=== PATIENT | female | born 1955 | race Caucasian/White ===

== ENCOUNTER → 2017-05-23 | Outpatient (CLI) | payer BC ==
--- NOTE | 2017-05-25 08:21 | MM ---
Reason for exam: screening (asymptomatic). Last mammogram was performed 1 year and 1 month ago. History: Patient is postmenopausal and is nulliparous. Took hormonal contraceptives for 20 years beginning at age 19. Took estrogen for 1 year beginning at age 44. Took progesterone for 1 year beginning at age 44. Physical Findings: A clinical breast exam by your physician is recommended on an annual basis and results should be correlated with mammographic findings. MG Screening Mammo w CAD Bilateral CC and MLO view(s) were taken. Prior study comparison: April 22, 2016, bilateral MG screening mammo w CAD. February 19, 2015, bilateral MG screening mammo w CAD. There are scattered fibroglandular densities. There is no discrete abnormality. No significant changes when compared with prior studies. ASSESSMENT: Negative, BI-RAD 1 RECOMMENDATION: Routine screening mammogram of both breasts in 1 year.
== END ==
LOC: RADMAMWWP 15:17
PROVIDERS: ATTEND Family Medicine
DX: Z12.31 Encounter for screening mammogram for malignant neoplasm of breast (principal)

== ENCOUNTER → 2018-07-21 | Outpatient (CLI) | payer BC ==
--- NOTE | 2018-07-29 10:21 | MM ---
Reason for exam: screening (asymptomatic). Last mammogram was performed 1 year and 2 months ago. History: Patient is postmenopausal and is nulliparous. Took hormonal contraceptives for 20 years beginning at age 19. Took estrogen for 1 year beginning at age 44. Took progesterone for 1 year beginning at age 44. MG Screening Mammo w CAD Bilateral CC and MLO view(s) were taken. Prior study comparison: May 23, 2017, bilateral MG screening mammo w CAD. April 22, 2016, bilateral MG screening mammo w CAD. There are scattered fibroglandular densities. Chronic nodularity left breast laterally and posteriorly on CC view unchanged from 2016. No significant changes when compared with prior studies. ASSESSMENT: Benign, BI-RAD 2 RECOMMENDATION: Routine screening mammogram of both breasts in 1 year.
== END ==
LOC: RADMAMWWP 11:28
PROVIDERS: ATTEND Family Medicine
DX: Z12.31 Encounter for screening mammogram for malignant neoplasm of breast (principal)
CPT/HCPCS: 77067

== ENCOUNTER → 2019-01-29 | Outpatient (CLI) | payer BC ==
--- NOTE | 2019-01-29 16:51 | XR ---
EXAMINATION TYPE: XR chest 2V DATE OF EXAM: 01/29/2019 COMPARISON: Prior chest x-ray 11/04/2013 HISTORY: Nicotine dependence TECHNIQUE: Frontal and lateral views of the chest are obtained. FINDINGS: There is no focal air space opacity, pleural effusion, or pneumothorax seen. The cardiac silhouette size is stable. The osseous structures are intact. Question nodular density between the posterior left sixth and seventh ribs measuring approximately 5 mm. Prominent lung volumes may be ind icative of underlying COPD. IMPRESSION: Question left upper lobe lung nodule, consider chest CT or short interval follow-up.
== END | disposition home or self-care (01) ==
LOC: RADXRMAIN 15:00
PROVIDERS: ATTEND Physician Assistant
DX: F17.200 Nicotine dependence, unspecified, uncomplicated (principal)
CPT/HCPCS: 71046

== ENCOUNTER → 2019-02-11 | Outpatient (CLI) | payer BC ==
--- NOTE | 2019-02-12 09:59 | CT ---
EXAMINATION TYPE: CT chest w con DATE OF EXAM: 02/11/2019 COMPARISON: Chest x-ray 01/29/2019 HISTORY: solitary pulmonary nodule CT DLP: 301.8 mGycm Automated exposure control for dose reduction was used. CONTRAST: CT scan of the chest is performed with IV Contrast, patient injected with 100 mL of Isovue 300. FINDINGS: LUNGS: The lungs are grossly clear, there is no concerning parenchymal mass or nodule identified. Jeronimo e scattered areas of centrilobular emphysematous change, thickened linear parenchymal bands, and susp ected bronchiectasis. Some mild bronchial wall thickening present centrally. Probable scarring at the lingula, there is some minimal nodularity present and there is some scarring likely at the posterior left lung base. There is no pleural effusion or pneumothorax seen. The tracheobronchial tree is pa tent. MEDIASTINUM: There are no greater than 1 cm hilar or mediastinal lymph nodes. No pericardial effusi on is seen. Mild coronary artery calcification AORTA: No additional significant abnormality is seen. OTHER: No additional significant abnormality is seen. IMPRESSION: There is some mild emphysema, interstitial lung disease, bronchiectasis. No evident lung mass.
== END | disposition home or self-care (01) ==
LOC: RADCTMAIN 17:27
PROVIDERS: ATTEND Family Medicine
DX: J43.2 Centrilobular emphysema (principal); J84.9 Interstitial pulmonary disease, unspecified; J47.9 Bronchiectasis, uncomplicated
CPT/HCPCS: 71260; Q9967

== ENCOUNTER 2019-03-13 08:38 | Day surgery (SDC) | payer BC ==
[2019-03-08 13:58] VITALS: BMI 25.9
--- NOTE | 2019-03-13 07:33 | P.GSHP ---
History of Present Illness H&P Date: 03/13/19 CHIEF COMPLAINT: Colon screen HISTORY OF PRESENT ILLNESS: The patient is a 63-year-old female who presents for colon screen. Lower endoscopy was offered for further evaluation and management. PAST MEDICAL HISTORY: Please see list. PAST SURGICAL HISTORY: Please see list. MEDICATIONS: Please see list. ALLERGIES: Please see list. SOCIAL HISTORY: No illicit drug use FAMILY HISTORY: No reports of Crohn disease or ulcerative colitis. REVIEW OF ORGAN SYSTEMS: CONSTITUTIONAL: No reports of fevers or chills. PHYSICAL EXAM: VITAL SIGNS: Stable GENERAL: Well-developed pleasant in no acute distress. HEENT: No scleral icterus. Extraocular movements grossly intact. Moist buccal mucosa. NECK: Supple without lymphadenopathy. CHEST: Unlabored respirations. Equal bilateral excursions. CARDIOVASCULAR: Regular rate and rhythm. Distal 2+ pulses. ABDOMEN: Soft, nontender, nondistended. MUSCULOSKELETAL: No clubbing, cyanosis, or edema. ASSESSMENT: 1. Colon screen. PLAN: 1. Recommend proceeding with a lower endoscopy Past Medical History Past Medical History: COPD Additional Past Medical History / Comment(s): states positive cologaurd, no rx for COPD History of Any Multi-Drug Resistant Organisms: None Reported Past Surgical History: Appendectomy, Hysterectomy, Tonsillectomy Past Anesthesia/Blood Transfusion Reactions: No Reported Reaction Smoking Status: Current every day smoker - Past Family History Mother Family Medical History: Deep Vein Thrombosis (DVT) Medications and Allergies Home Medications Medication Instructions Recorded Confirmed Type ALPRAZolam [Xanax] 1 mg PO BID 03/08/19 03/08/19 History Citalopram Hydrobromide [CeleXA] 40 mg PO HS 03/08/19 03/08/19 History Multivitamins, Thera [Multivitamin 1 tab PO DAILY 03/08/19 03/08/19 History (formulary)] Allergies Allergy/AdvReac Type Severity Reaction Status Date / Time No Known Allergies Allergy Verified 03/08/19 12:58
[~2019-03-13 08:38] MED LIST: LACTATED RINGERS 1,000 ML IV SCH; LIDOCAINE 1% 20 ML VIAL (10MG/ML) FOR IV START INTRADERMA PRN; MIDAZOLAM 2 MG/2 ML VIAL IV PRN
[2019-03-13 08:59] VITALS: RESP 16; TEMP 98.8
[2019-03-13] MEDS ORDERED: PROPOFOL 10 MG/ML 20 ML VIAL IV ONE (09:28)
[2019-03-13] MEDS ORDERED: IV FLUID CONTINUATION 1,000 ML IV ONE (10:23)
--- NOTE | 2019-03-13 10:30 | P.PCN ---
Date of Procedure: 03/13/19 Description of Procedure: PREOPERATIVE DIAGNOSIS: Colonoscopy screening, first POSTOPERATIVE DIAGNOSIS: Colonoscopy screening, first Multiple tubular adenomas throughout the colon External hemorrhoids, grade 2 Severe sigmoid diverticulosis Partial large bowel obstruction sigmoid stricture Hepatic flexure tumor, 5 cm OPERATION: Colonoscopy to the ileocecal valve and appendiceal orifice Colonoscopy with multiple hot snare polypectomies Colonoscopy with Rothnet for retrieval of large intramucosal tumor Colonoscopy with resection of large 5 cm intramucosal tumor, hepatic flexure SURGEON: Molly Flores MD. ANESTHESIA: MAC. INDICATIONS: The patient is a 63-year-old female who presents for colonoscopy screening, initial screening. Benefits and risks were described and informed consent was obtained. DESCRIPTION OF PROCEDURE: The patient had undergone Suprep. She had been brought into the operating room and laid in the left lateral decubitus position. After adequate intravenous sedation, the rectum was examined with 2% lidocaine jelly. External hemorrhoids were encountered. The rectal tone was within normal limits. No lesions were palpated in the rectal vault. Initially an adult size Olympus colonoscope was used however at the sigmoid colon, sigmoid stricture was identified. A pe diatric colonoscope was used for the rest of the case. An Olympus colonoscope was advanced until the ileocecal valve and appendiceal orifice were clearly viewed. The prep was good with visualization of the mucosal folds. Abdominal wall pressure was used to advance the scope through a extremely tortuous sigmoid colon with moderate to severe sigmoid diverticulosis including colonic stricture. Multiple colonic polyps were found snare polypectomy. An over 5 cm pedunculated intramucosal tumor from the hepatic flexure was snared at its base for complete resection. A combination of cold forceps including Rothnet was used to remove the large polyp through the colon. Severe colon stricture was confirmed at the sigmoid colon where careful maneuvering was used to remove the over 5 cm tumor. Reinsertion of the colon was required however prohibited secondary to moderate edema of the colonic mucosa. Additional adenomas were confirmed along the sigmoid colon however unable to retrieve secondary to moderate edema following retrieval of large tumor. No evidence of focal colitis was found. Retroflexion of the scope demonstrated grade 2 internal hemorrhoids without active bleeding or inflammation. The colon was desufflated. The patient had tolerated the procedure well. Withdrawal time was over 6 minutes. FINDINGS: Aronchick preparation quality scale 1 (1-5) Internal hemorrhoids, grade 2 External hemorrhoids, grade 3 No arteriovenous malformations Severe colon stricture along sigmoid colon requiring pediatric colonoscope Severe sigmoid diverticulosis with redundancy Removal of 3 polyps: - Snare polypectomy at ileocecal valve, 5 mm tubulovillous adenoma polyp. - Snare polypectomy at ascending colon 2, 8 mm and 6-mm flat villous adenoma polyp. Resection of intramucosal tumor from hepatic flexure: - Over 5 cm intramucosal mass/tumor resected using snare polypectom - Combination of retrieval using cold forceps biopsies including Rothnet RECOMMENDATIONS: Given severity of tubular adenomas and resection of large intramucosal tumor over 5-cm, repeat colonoscopy in 6 months, August 2019 Plan - Discharge Summary Discharge Rx Participant: No New Discharge Prescriptions: No Action Multivitamins, Thera [Multivitamin (formulary)] 1 tab PO DAILY Citalopram Hydrobromide [CeleXA] 40 mg PO HS ALPRAZolam [Xanax] 1 mg PO BID Discharge Medication List ALPRAZolam [Xanax] 1 mg PO BID 03/08/19 [History] Citalopram Hydrobromide [CeleXA] 40 mg PO HS 03/08/19 [History] Multivitamins, Thera [Multivitamin (formulary)] 1 tab PO DAILY 03/08/19 [History] Follow up Appointment(s)/Referral(s): Molly Flores MD [STAFF PHYSICIAN] - 03/26/19 Patient Instructions/Handouts: Colorectal Polyps (DC), Diverticulosis Diet (GEN), Diverticulosis (DC) Activity/Diet/Wound Care/Special Instructions: Repeat colonoscopy in 6 months, September 2019 for large 4-inch mass removed from colon. Discharge Disposition: HOME SELF-CARE
[2019-03-13 10:40] VITALS: BP 113/71; PULSE 89
== END 2019-03-13 11:41 | disposition home or self-care (01) ==
LOC: ORWHC2ENDO 08:38
PROVIDERS: ATTEND Surgery Plastic and Reconstructive Surgery
DX: Z12.11 Encounter for screening for malignant neoplasm of colon (principal); K57.30 Diverticulosis of large intestine without perforation or abscess without bleeding; K56.699 Other intestinal obstruction unspecified as to partial versus complete obstruction; K64.1 Second degree hemorrhoids; D12.0 Benign neoplasm of cecum; D12.2 Benign neoplasm of ascending colon; D12.3 Benign neoplasm of transverse colon; Z79.899 Other long term (current) drug therapy; J44.9 Chronic obstructive pulmonary disease, unspecified; F17.200 Nicotine dependence, unspecified, uncomplicated; F39 Unspecified mood [affective] disorder
CPT/HCPCS: 88305; 45385; J2704

== ENCOUNTER → 2019-07-26 | Outpatient (CLI) | payer MEDICARE, BC ==
--- NOTE | 2019-07-29 13:16 | MM ---
Reason for exam: screening (asymptomatic). Last mammogram was performed 1 year ago. History: Patient is postmenopausal and is nulliparous. Took hormonal contraceptives for 20 years beginning at age 19. Took estrogen for 1 year beginning at age 44. Took progesterone for 1 year beginning at age 44. Physical Findings: A clinical breast exam by your physician is recommended on an annual basis and results should be correlated with mammographic findings. MG 3D Screening Mammo W/Cad Bilateral CC and MLO view(s) were taken. Prior study comparison: July 21, 2018, bilateral MG screening mammo w CAD. May 23, 2017, bilateral MG screening mammo w CAD. There are scattered fibroglandular densities. No suspicious abnormality. No significant changes when compared with prior studies. ASSESSMENT: Negative, BI-RAD 1 RECOMMENDATION: Routine screening mammogram of both breasts in 1 year.
== END | disposition home or self-care (01) ==
LOC: RADMAMWWP 16:16
PROVIDERS: ATTEND Family Medicine
DX: Z12.31 Encounter for screening mammogram for malignant neoplasm of breast (principal)
CPT/HCPCS: 77063; 77067

== ENCOUNTER 2019-09-04 09:37 | Day surgery (SDC) | payer MEDICARE, BC ==
[2019-09-04 10:46] VITALS: TEMP 97
[2019-09-04] MEDS ORDERED: LACTATED RINGERS 1,000 ML IV ONE (10:58)
[2019-09-04] MEDS ORDERED: LIDOCAINE 1% (10MG/ML) FOR IV START INTRADERMA ONE (10:58)
[2019-09-04] MEDS ORDERED: PROPOFOL 10 MG/ML 20 ML VIAL IV ONE (11:14)
--- NOTE | 2019-09-04 11:17 | P.GSHP ---
History of Present Illness H&P Date: 09/04/19 CHIEF COMPLAINT: Colon screen HISTORY OF PRESENT ILLNESS: The patient is a 64-year-old female who presents for colon screen. Lower endoscopy was offered for further evaluation and management. PAST MEDICAL HISTORY: Please see list. PAST SURGICAL HISTORY: Please see list. MEDICATIONS: Please see list. ALLERGIES: Please see list. SOCIAL HISTORY: No illicit drug use FAMILY HISTORY: No reports of Crohn disease or ulcerative colitis. REVIEW OF ORGAN SYSTEMS: CONSTITUTIONAL: No reports of fevers or chills. PHYSICAL EXAM: VITAL SIGNS: Stable GENERAL: Well-developed pleasant in no acute distress. HEENT: No scleral icterus. Extraocular movements grossly intact. Moist buccal mucosa. NECK: Supple without lymphadenopathy. CHEST: Unlabored respirations. Equal bilateral excursions. CARDIOVASCULAR: Regular rate and rhythm. Distal 2+ pulses. ABDOMEN: Soft, nontender, nondistended. MUSCULOSKELETAL: No clubbing, cyanosis, or edema. ASSESSMENT: 1. Colon screen. PLAN: 1. Recommend proceeding with a lower endoscopy Past Medical History Past Medical History: COPD Additional Past Medical History / Comment(s): states positive cologaurd, no rx for COPD History of Any Multi-Drug Resistant Organisms: None Reported Past Surgical History: Appendectomy, Hysterectomy, Tonsillectomy Past Anesthesia/Blood Transfusion Reactions: No Reported Reaction Additional Past Anesthesia/Blood Transfusion Reaction / Comment(s): PT REPORTS NEVER RECEIVED Past Psychological History: Anxiety Smoking Status: Current every day smoker Past Alcohol Use History: Occasional Additional Past Alcohol Use History / Comment(s): was a 1ppd smoker, trying to quit down to 10 cigarettes a day from age 17 Past Drug Use History: None Reported - Past Family History Mother Family Medical History: Deep Vein Thrombosis (DVT) Additional Family Medical History / Comment(s): PT UNSURE OF MEDICAL HX FROM ANY OTHER FAMILY Medications and Allergies Home Medications Medication Instructions Recorded Confirmed Type ALPRAZolam [Xanax] 1 mg PO BID 03/08/19 09/04/19 History Citalopram Hydrobromide [CeleXA] 40 mg PO HS 03/08/19 09/04/19 History Multivitamins, Thera [Multivitamin 1 tab PO DAILY 03/08/19 09/04/19 History (formulary)] Allergies Allergy/AdvReac Type Severity Reaction Status Date / Time No Known Allergies Allergy Verified 09/04/19 10:39 Surgical - Exam Vital Signs Temp Pulse Resp BP 97.0 F L 104 H 18 145/71 09/04/19 10:32 09/04/19 10:32 09/04/19 10:32 09/04/19 10:32
--- NOTE | 2019-09-04 11:42 | P.PCN ---
Date of Procedure: 09/04/19 Description of Procedure: PREOPERATIVE DIAGNOSIS: Personal history of colon tumor resection High risk colon adenomas POSTOPERATIVE DIAGNOSIS: Personal history of colon tumor resection High risk colon adenomas Severe sigmoid obstruction OPERATION: Colonoscopy to the sigmoid colon converted to flexible sigmoidoscopy SURGEON: Molly Flores MD. ANESTHESIA: MAC. INDICATIONS: The patient is a 64-year-old female with personal history of high-risk colon adenomas including removal of 5 cm colon lipoma of the ascending colon. Benefits and risks were described and informed consent was obtained. DESCRIPTION OF PROCEDURE: The patient had undergone Suprep. She had been brought into the operating room and laid in the left lateral decubitus position. After adequate intravenous sedation, the rectum was examined with 2% lidocaine jelly. No external hemorrhoids were encountered. The rectal tone was within normal limits. No lesions were palpated in the rectal vault. The prep was good. An Olympus colonoscope was advanced to 20 cm from the anal verge, sigmoid colon were marked angularity provided Finn scope. The scope was switched out to pediatric colonoscope were similarly the scope could not advance beyond the sigmoid colon at 20 cm from the anal verge. A few tubular adenomas were identified however not retrieved less than 3 mm in size. No evidence of focal colitis was found. Retroflexion of the scope demonstrated grade 1 internal hemorrhoids without active bleeding or inflammation. The colon was desufflated. The patient had tolerated the procedure well. Withdrawal time was over 6 minutes. FINDINGS: Aronchick preparation quality scale 1 (1-5) Internal hemorrhoids, grade 1 No external prolapsed hemorrhoids. No arteriovenous malformations. Adenomatous polyps of sigmoid colon less than 4 mm unable to retrieve Sigmoid angulation preventing advancement of the scope despite adult and pediatric colonoscopes No focal colitis. RECOMMENDATIONS: 1. Immediate barium enema advised. 2. Repeat colonoscopy in one year, 2020 pending results of barium enema Plan - Discharge Summary New Discharge Prescriptions: Continue Multivitamins, Thera [Multivitamin (formulary)] 1 tab PO DAILY Citalopram Hydrobromide [CeleXA] 40 mg PO HS ALPRAZolam [Xanax] 1 mg PO BID Discharge Medication List ALPRAZolam [Xanax] 1 mg PO BID 03/08/19 [History] Citalopram Hydrobromide [CeleXA] 40 mg PO HS 03/08/19 [History] Multivitamins, Thera [Multivitamin (formulary)] 1 tab PO DAILY 03/08/19 [History] Follow up Appointment(s)/Referral(s): Molly Flores MD [STAFF PHYSICIAN] - 09/17/19 Patient Instructions/Handouts: Colorectal Polyps (GEN), *Surgery [facility] - (Anesthesia) Endoscopy Discharge Instructions Discharge Disposition: HOME SELF-CARE
[2019-09-04 12:01] VITALS: BP 106/67
[2019-09-04 12:10] VITALS: PULSE 78; RESP 16
--- NOTE | 2019-09-04 17:14 | FL ---
EXAMINATION TYPE: FL barium enema DATE OF EXAM: 09/04/2019 CLINICAL HISTORY: 64-year-old female history of colon polyps and intramural lipoma. 2 polyp and a 5 c m lipoma excision 6 months ago. Failed colonoscopy at 20 cm presently. TECHNIQUE: A double contrast barium enema study is performed. Total fluoroscopy time: 3 minutes 52 seconds. Total images: 51. COMPARISON: None. FINDINGS: Test Desk Trouble Locator view of the abdomen shows overall non-obstructive bowel gas pattern. There is some difficulty in emptying the colon after initial contrast filling. There is generalized c olonic diverticulosis, most numerous in the sigmoid colon. No evident polyp. No constricting lesion t hroughout the colon. There is some reflux into the terminal ileum which appears within normal limits. IMPRESSION: 1. Generalized colonic diverticulosis, greatest in the sigmoid colon. 2. Some difficulty in emptying the colon after initial contrast filling. No visualized polyp.
== END 2019-09-04 13:45 | disposition home or self-care (01) ==
LOC: ORWHC2ENDO 09:37
PROVIDERS: ATTEND Surgery Plastic and Reconstructive Surgery
DX: K64.0 First degree hemorrhoids (principal); D12.5 Benign neoplasm of sigmoid colon; J44.9 Chronic obstructive pulmonary disease, unspecified; F41.9 Anxiety disorder, unspecified; F32.9 Major depressive disorder, single episode, unspecified; F17.210 Nicotine dependence, cigarettes, uncomplicated; K57.30 Diverticulosis of large intestine without perforation or abscess without bleeding; Z82.49 Family history of ischemic heart disease and other diseases of the circulatory system; Z90.49 Acquired absence of other specified parts of digestive tract; Z86.018 Personal history of other benign neoplasm; Z90.710 Acquired absence of both cervix and uterus; Z90.89 Acquired absence of other organs; Z79.899 Other long term (current) drug therapy; Z86.010 Personal history of colon polyps
CPT/HCPCS: 74270; 45330; J2704

== ENCOUNTER → 2020-09-02 | Outpatient (CLI) | payer MEDICARE ==
--- NOTE | 2020-09-02 15:48 | BD ---
EXAMINATION TYPE: Axial Bone Density DATE OF EXAM: 09/02/2020 COMPARISON: NONE CLINICAL HISTORY: Height: 65 IN Weight: 150 LBS FRAX RISK QUESTIONS: Current Tobacco Use: YES RISK FACTORS HISTORY OF: Active: YES Postmenopausal woman: TOTAL HYST AGE 45 MEDICATIONS: Additional Medications: CALCIUM, VIT D, XANAX, ANXIETY MEDS,VIT C, IRON, EXAM MEASUREMENTS: Bone mineral densitometry was performed using the [employer] System. Bone mineral density as measured about the Lumbar spine is: ----- L1-L4(G/cm2): 1.221 T Score Values are as follows: ----- L2: 0.4 ----- L3: 1.2 ----- L4: 0.3 ----- L1-L4: 0.3 Bone mineral density BASELINE Bone mineral density about the R hip (g/cm2): 0.832 Bone mineral density about the L hip (g/cm2): 0.841 T Score values are as follows: -----R Neck: -1.5 -----L Neck: -1.4 -----R Total: -0.8 -----L Total: -0.6 Bone mineral density BASELINE IMPRESSION: No evidence for osteopenia or osteoporosis. NOTE: T-SCORE=SD OF THE YOUNG ADULT MEAN.
--- NOTE | 2020-09-04 11:06 | MM ---
Reason for exam: screening (asymptomatic). Last mammogram was performed 1 year and 1 month ago. History: Patient is postmenopausal and is nulliparous. Took hormonal contraceptives for 20 years beginning at age 19. Took estrogen for 1 year beginning at age 44. Took progesterone for 1 year beginning at age 44. Physical Findings: A clinical breast exam by your physician is recommended on an annual basis and results should be correlated with mammographic findings. MG 3D Screening Mammo W/Cad Bilateral CC and MLO view(s) were taken. Prior study comparison: July 26, 2019, bilateral MG 3d screening mammo w/cad. July 21, 2018, bilateral MG screening mammo w CAD. There are scattered fibroglandular densities. There is chronic nodularity in the left breast. No significant changes when compared with prior studies. ASSESSMENT: Negative, BI-RAD 1 RECOMMENDATION: Routine screening mammogram of both breasts in 1 year.
== END | disposition home or self-care (01) ==
LOC: RADMAMWWP 13:57
PROVIDERS: ATTEND Family Medicine
DX: Z12.31 Encounter for screening mammogram for malignant neoplasm of breast (principal); Z78.0 Asymptomatic menopausal state
CPT/HCPCS: 77063; 77067; 77080

== ENCOUNTER → 2020-10-08 | Day surgery (SDC) | payer MEDICARE ==
[2020-10-05 11:35] VITALS: BMI 25.0
[~2020-10-08] MED LIST changes: +LIDOCAINE 1% (10MG/ML) FOR IV START INTRADERMA PRN; -LIDOCAINE 1% 20 ML VIAL (10MG/ML) FOR IV START INTRADERMA PRN; -MIDAZOLAM 2 MG/2 ML VIAL IV PRN; +PROPOFOL 10 MG/ML 20 ML VIAL IV ONE
[2020-10-08 07:11] VITALS: TEMP 97.5
--- NOTE | 2020-10-08 07:35 | P.GSHP ---
History of Present Illness H&P Date: 10/08/20 CHIEF COMPLAINT: Colon screen HISTORY OF PRESENT ILLNESS: The patient is a 65-year-old female who presents for colon screen. Lower endoscopy was offered for further evaluation and management. PAST MEDICAL HISTORY: Please see list. PAST SURGICAL HISTORY: Please see list. MEDICATIONS: Please see list. ALLERGIES: Please see list. SOCIAL HISTORY: No illicit drug use FAMILY HISTORY: No reports of Crohn disease or ulcerative colitis. REVIEW OF ORGAN SYSTEMS: CONSTITUTIONAL: No reports of fevers or chills. PHYSICAL EXAM: VITAL SIGNS: Stable GENERAL: Well-developed pleasant in no acute distress. HEENT: No scleral icterus. Extraocular movements grossly intact. Moist buccal mucosa. NECK: Supple without lymphadenopathy. CHEST: Unlabored respirations. Equal bilateral excursions. CARDIOVASCULAR: Regular rate and rhythm. Distal 2+ pulses. ABDOMEN: Soft, nontender, nondistended. MUSCULOSKELETAL: No clubbing, cyanosis, or edema. ASSESSMENT: 1. Colon screen. PLAN: 1. Recommend proceeding with a lower endoscopy Past Medical History Past Medical History: COPD Additional Past Medical History / Comment(s): hx colon polyps History of Any Multi-Drug Resistant Organisms: None Reported Past Surgical History: Appendectomy, Hysterectomy, Tonsillectomy Past Anesthesia/Blood Transfusion Reactions: No Reported Reaction Additional Past Anesthesia/Blood Transfusion Reaction / Comment(s): PT REPORTS NEVER RECEIVED Smoking Status: Current every day smoker - Past Family History Mother Family Medical History: Deep Vein Thrombosis (DVT) Additional Family Medical History / Comment(s): PT UNSURE OF MEDICAL HX FROM ANY OTHER FAMILY Medications and Allergies Home Medications Medication Instructions Recorded Confirmed Type ALPRAZolam [Xanax] 1 mg PO BID 03/08/19 10/08/20 History Citalopram Hydrobromide [CeleXA] 40 mg PO DAILY 03/08/19 10/08/20 History Albuterol Nebulized (Conc) 2.5 mg INHALATION Q6H PRN 10/05/20 10/08/20 History [Ventolin Nebulized (Conc)] Ascorbic Acid [Vitamin C] 1,000 mg PO DAILY 10/05/20 10/08/20 History Cholecalciferol [Vitamin D3 (25 75 mcg PO DAILY 10/05/20 10/08/20 History Mcg = 1000 Iu)] Ferrous Sulfate [Feosol] 325 mg PO MOWEFR 10/05/20 10/08/20 History Magnesium 250 mg PO DAILY 10/05/20 10/08/20 History Vitamin E 400 unit PO DAILY 10/05/20 10/08/20 History Allergies Allergy/AdvReac Type Severity Reaction Status Date / Time No Known Allergies Allergy Verified 10/08/20 07:07 Surgical - Exam Vital Signs Temp Pulse Resp BP Pulse Ox 97.5 F L 62 16 150/83 91 L 10/08/20 07:09 10/08/20 07:09 10/08/20 07:09 10/08/20 07:09 10/08/20 07:09
--- NOTE | 2020-10-08 08:07 | P.OP ---
Date of Procedure: 10/08/20 Description of Procedure: PREOPERATIVE DIAGNOSIS: History of colon polyps POSTOPERATIVE DIAGNOSIS: History of colon polyps Sigmoid colon stricture OPERATION: Colonoscopy to the sigmoid colon. SURGEON: Molly Flores MD. ANESTHESIA: MAC. INDICATIONS: The patient is a 65-year-old female who presents for colonoscopy screening. Her last colonoscopy was more 5 years ago. Benefits and risks were described and informed consent was obtained. DESCRIPTION OF PROCEDURE: The patient had undergone Suprep. She had been brought into the operating room and laid in the left lateral decubitus position. After adequate intravenous sedation, the rectum was examined with 2% lidocaine jelly. No external hemor rhoids were encountered. The rectal tone was loose. No lesions were palpated in the rectal vault. An pediatric Olympus colonoscope was advanced along the rectum to the stenosed sigmoid colon. Despite multiple maneuvers, the scope could not advance beyond 20 cm from the anal verge. As the patient posed high risk for perforation with persistence of the procedure, the procedure was discontinued. The colon was desufflated. The patient had tolerated the procedure well. Withdrawal time was over 6 minutes. FINDINGS: [place] preparation quality scale 1 (1-5) Stricture of the sigmoid colon preventing further advancement of the scope. No external prolapsed hemorrhoids. Scope advanced to sigmoid colon at 20 cm with sigmoid stricture. No arteriovenous malformations. No adenomatous polyps. No focal colitis. RECOMMENDATIONS: Completion of colonoscopy evaluation with barium enema. Plan - Discharge Summary Discharge Rx Participant: No New Discharge Prescriptions: No Action Citalopram Hydrobromide [CeleXA] 40 mg PO DAILY ALPRAZolam [Xanax] 1 mg PO BID Magnesium 250 mg PO DAILY Ferrous Sulfate [Feosol] 325 mg PO MOWEFR Cholecalciferol [Vitamin D3 (25 Mcg = 1000 Iu)] 75 mcg PO DAILY Ascorbic Acid [Vitamin C] 1,000 mg PO DAILY Albuterol Nebulized (Conc) [Ventolin Nebulized (Conc)] 2.5 mg INHALATION Q6H PRN PRN Reason: Dyspnea Vitamin E 400 unit PO DAILY Discharge Medication List ALPRAZolam [Xanax] 1 mg PO BID 03/08/19 [History] Citalopram Hydrobromide [CeleXA] 40 mg PO DAILY 03/08/19 [History] Albuterol Nebulized (Conc) [Ventolin Nebulized (Conc)] 2.5 mg INHALATION Q6H PRN 10/05/20 [History] Ascorbic Acid [Vitamin C] 1,000 mg PO DAILY 10/05/20 [History] Cholecalciferol [Vitamin D3 (25 Mcg = 1000 Iu)] 75 mcg PO DAILY 10/05/20 [History] Ferrous Sulfate [Feosol] 325 mg PO MOWEFR 10/05/20 [History] Magnesium 250 mg PO DAILY 10/05/20 [History] Vitamin E 400 unit PO DAILY 10/05/20 [History]
[2020-10-08 10:37] VITALS: BP 114/70; PULSE 82; RESP 18
--- NOTE | 2020-10-08 13:05 | FL ---
EXAMINATION TYPE: FL barium enema DATE OF EXAM: 10/08/2020 COMPARISON: 09/04/2019 HISTORY: Previous polyp removal, stenosis, incomplete colonoscopy to sigmoid colon TECHNIQUE: Single contrast technique is utilized. FINDINGS: There is easy flow of contrast through the redundant sigmoid colon. A few tiny diverticuli may be present. Diverticuli within the distal descending colon which is somewhat redundant. Contrast extends to the cecum. Terminal ileum is identified on delayed images. No persistent suspicious circumferential areas of narrowing are identified. No suspicious filling def ects are identified. Small sessile polyp within the distal transverse colon is not excluded. Fluoroscopy time: 1 minute 32 seconds Images: 20 IMPRESSION: 1. No large persistent filling defect. No circumferential area of narrowing or suspicious wall irreg ularity. 2. Small sessile polyp within the distal inferior transverse colon is not excluded. 3. Mild diverticulosis without acute diverticulitis
== END | disposition home or self-care (01) ==
LOC: ORWHC2ENDO 06:43
PROVIDERS: ATTEND Surgery Plastic and Reconstructive Surgery
DX: Z12.11 Encounter for screening for malignant neoplasm of colon (principal); K56.699 Other intestinal obstruction unspecified as to partial versus complete obstruction; J44.9 Chronic obstructive pulmonary disease, unspecified; Z86.010 Personal history of colon polyps; Z90.89 Acquired absence of other organs; Z90.710 Acquired absence of both cervix and uterus; Z87.891 Personal history of nicotine dependence; Z82.49 Family history of ischemic heart disease and other diseases of the circulatory system; Z79.899 Other long term (current) drug therapy
CPT/HCPCS: 74270; 45330; J2704

== ENCOUNTER → 2020-11-06 | Outpatient (CLI) | payer MEDICARE ==
[2020-11-07 01:21] LABS: Albumin 4.1 g/dL (3.80-4.90); Albumin/Globulin Ratio 1.71 (1.60-3.17); Anion Gap 9.5 mmol/L (4.00-12.00); BUN/Creat Ratio 13.75 Ratio (12.00-20.00); Calcium 9.3 mg/dL (8.7-10.3); Carbon Dioxide 27.5 mmol/L (21.6-31.8); Chol/HDL Ratio 3.52; Globulin 2.4 g/dL (1.6-3.3); LDL Cholesterol,Calculated 159.8 mg/dL (0.0-131.0); Non-African American GFR(CKD) 76.8 (60.0-200.0); Potassium 4.4 mmol/L (3.5-5.5); Total Bilirubin 0.7 mg/dL (0.2-1.2); Total Protein 6.5 g/dL (6.2-8.2); VLDL Calculation 14.2 mg/dL (5.00-40.00)
== END | disposition home or self-care (01) ==
LOC: LABWHC1 08:12
PROVIDERS: ATTEND Internal Medicine Interventional Cardiology
DX: E78.2 Mixed hyperlipidemia (principal)
CPT/HCPCS: 36415; 80053; 80061

== ENCOUNTER → 2020-12-24 | Outpatient (CLI) | payer MEDICARE ==
[2020-12-24 17:23] LABS: Chol/HDL Ratio 2.28; LDL Cholesterol,Calculated 61.4 mg/dL (0.0-131.0); VLDL Calculation 11.6 mg/dL (5.00-40.00)
== END | disposition home or self-care (01) ==
LOC: LABWHC1 07:48
PROVIDERS: ATTEND Nurse Practitioner Adult Health
DX: E78.2 Mixed hyperlipidemia (principal)
CPT/HCPCS: 36415; 80061; 84450; 84460

== ENCOUNTER → 2020-12-31 | Outpatient (CLI) | payer MEDICARE ==
[2021-01-02 11:03] LABS: Anabasine Urine <2.0 ng/mL (<2.0)
== END | disposition home or self-care (01) ==
LOC: LABWHC1 10:50
PROVIDERS: ATTEND Surgery Plastic and Reconstructive Surgery
DX: Z71.51 Drug abuse counseling and surveillance of drug abuser (principal)
CPT/HCPCS: 80323

== ENCOUNTER → 2021-01-04 | Outpatient (CLI) | payer MEDICARE ==
[2021-01-04 23:07] LABS: HCT 37.9 % (37.2-46.3); HGB 12.3 g/dL (12.0-15.0); MCH 28.9 pg (27.0-32.0); MCHC 32.5 g/dL (32.0-37.0); MCV 89.2 fL (80.0-97.0); Mean Platelet Volume 11.1 fL (9.5-12.2); Platelet Count 237 X 10*3/uL (140-440); RBC 4.25 X 10*6/uL (4.10-5.20); RDW 12.9 % (11.5-14.5); WBC 12.08 X 10*3/uL (4.50-10.00)
[2021-01-05 01:02] LABS: African American GFR (CKD) 110.1 (60.0-200.0); Albumin 4.1 g/dL (3.80-4.90); Albumin/Globulin Ratio 1.71 (1.60-3.17); Anion Gap 11.6 mmol/L (4.00-12.00); BUN/Creat Ratio 28.33 Ratio (12.00-20.00); Calcium 8.9 mg/dL (8.7-10.3); Carbon Dioxide 27.4 mmol/L (21.6-31.8); Globulin 2.4 g/dL (1.6-3.3); Potassium 3.8 mmol/L (3.5-5.5); Total Bilirubin 0.8 mg/dL (0.3-1.2); Total Protein 6.5 g/dL (6.2-8.2)
== END | disposition home or self-care (01) ==
LOC: LABWHC1 14:51
PROVIDERS: ATTEND Surgery Plastic and Reconstructive Surgery
DX: Z01.812 Encounter for preprocedural laboratory examination (principal)
CPT/HCPCS: 36415; 80053; 85027

== ENCOUNTER 2021-01-11 11:22 | Inpatient (IN) | payer MEDICARE ==
[2021-01-05 16:48] VITALS: BMI 23.0
--- NOTE | 2021-01-08 14:00 | P.PN ---
Progress Note - Text Progress Note Date: 01/08/21 Patient notified regarding positive urine nicotine test including elevated white blood count. She denies any signs of infection, fevers, chills, sinusitis, UTI. She also reports chewing Nicorette gum to control cravings. Will repeat CBC. Should CBC continue to be elevated, case may be deferred. Benefits and risks of surgery also described. Reassessment on Monday, morning of surgery reviewed
--- NOTE | 2021-01-11 09:04 | P.GSHP ---
History of Present Illness H&P Date: 01/11/21 CHIEF COMPLAINT: History of sigmoid diverticulitis HISTORY OF PRESENT ILLNESS: The patient is a 65-year-old female with history of sigmoid diverticulitis. She completed a colonoscopy which excluded underlying neoplasm. Now she presents for sigmoid colon resection. PAST MEDICAL HISTORY: Please see list. PAST SURGICAL HISTORY: Please see list. MEDICATIONS: Please see list. ALLERGIES: Please see list. SOCIAL HISTORY: No illicit drug use FAMILY HISTORY: No reports of Crohn disease or ulcerative colitis. REVIEW OF ORGAN SYSTEMS: CONSTITUTIONAL: Denies any fever or chills. HEENT: Denies any trouble with vision or nosebleeds. No difficulty swallowing. PHYSICAL EXAM: VITAL SIGNS: Stable GENERAL: Well-developed pleasant in no acute distress. HEENT: No scleral icterus. Extraocular movements grossly intact. Moist buccal mucosa. NECK: Supple without lymphadenopathy. CHEST: Unlabored respirations. Equal bilateral excursions. CARDIOVASCULAR: Regular rate and rhythm. Distal 2+ pulses. ABDOMEN: Soft, nontender, nondistended. MUSCULOSKELETAL: No clubbing, cyanosis, or edema. NERUO: Cranial nerves 2-12 grossly intact. PSYCH: Alert and oriented to person place and time. ASSESSMENT: 1. History of sigmoid diverticulitis 2. Morbid obesity, BMI 35.2 PLAN: 1. Benefits and risks of surgical robotic sigmoid resection was reviewed in detail. Robotic-assisted approach was also described. 2. Enhanced colon recovery program. 3. DVT prophylaxis. 4. Antibiotic prophylaxis. 5. Inpatient hospitalization greater than 2 nights. Past Medical History Past Medical History: COPD, Hyperlipidemia, Pneumonia Additional Past Medical History / Comment(s): hx colon polyps. Diverticulitis. History of Any Multi-Drug Resistant Organisms: None Reported Past Surgical History: Appendectomy, Hysterectomy, Tonsillectomy Additional Past Surgical History / Comment(s): Colonoscopies, last attempted 09/2020 Past Anesthesia/Blood Transfusion Reactions: No Reported Reaction, Family History of Problems w/ Anesthesia Additional Past Anesthesia/Blood Transfusion Reaction / Comment(s): Mother had PONV Smoking Status: Former smoker - Past Family History Mother Family Medical History: Deep Vein Thrombosis (DVT) Additional Family Medical History / Comment(s): (PT UNSURE OF MEDICAL HX FROM ANY OTHER FAMILY) Medications and Allergies Home Medications Medication Instructions Recorded Confirmed Type ALPRAZolam [Xanax] 1 mg PO BID 03/08/19 01/05/21 History Citalopram Hydrobromide [CeleXA] 40 mg PO DAILY 03/08/19 01/05/21 History Albuterol Nebulized (Conc) 2.5 mg INHALATION Q6H PRN 10/05/20 01/05/21 History [Ventolin Nebulized (Conc)] Ascorbic Acid [Vitamin C] 1,000 mg PO DAILY 10/05/20 01/05/21 History Cholecalciferol [Vitamin D3 (25 75 mcg PO DAILY 10/05/20 01/05/21 History Mcg = 1000 Iu)] Ferrous Sulfate [Iron (65 MG 325 mg PO MOWEFR 10/05/20 01/05/21 History Elemental)] Magnesium 250 mg PO DAILY 10/05/20 01/05/21 History Vitamin E 400 unit PO DAILY 10/05/20 01/05/21 History Acetaminophen [Tylenol Extra 500 - 1,000 mg PO DIRECTED PRN 01/05/21 01/05/21 History Strength] Atorvastatin [Lipitor] 40 mg PO HS 01/05/21 01/05/21 History Allergies Allergy/AdvReac Type Severity Reaction Status Date / Time No Known Allergies Allergy Verified 01/05/21 16:08
[~2021-01-11 11:22] MED LIST changes: +ACETAMINOPHEN TAB 500 MG TAB PO PRN; +ALVIMOPAN 12 MG CAPSULE PO PRN; +Antibiotics per Pharmacy 1 EACH MISC MISCELLANE PRN; +DEXAMETHASONE SOD PHOSPHATE 4 MG/ML 1 ML VIAL IV ONE; +GABAPENTIN 300 MG CAP PO PRN; +HEPARIN SODIUM,PORCINE/PF 5,000 UNIT/0.5 ML SYRINGE SQ PRN; +HYDROmorphone 0.5 MG/0.5 ML SYRINGE IVP PRN; -LACTATED RINGERS 1,000 ML IV SCH; -LIDOCAINE 1% (10MG/ML) FOR IV START INTRADERMA PRN; +MELOXICAM 7.5 MG TAB PO PRN; +MIDAZOLAM 2 MG/2 ML VIAL IV PRN; +ONDANSETRON 4 MG/2 ML VIAL IVP ONE; -PROPOFOL 10 MG/ML 20 ML VIAL IV ONE; +metroNIDAZOLE-NS PMX 500 MG in SALINE 1 100ML.BAG IVPB PRN
[2021-01-11] MEDS ORDERED: LIDOCAINE 1% (10MG/ML) FOR IV START INTRADERMA ONE (11:49)
[2021-01-11] MEDS: LACTATED RINGERS 1,000 ML IV SCH ×2 (11:51→15:10)
[2021-01-11 12:03] LABS: Basophils # (A) 0.1 k/uL (0-0.2); Basophils % (A) 0 %; Eosinophils # (A) 0.1 k/uL (0-0.7); Eosinophils % (A) 1 %; HGB 13.9 gm/dL (11.4-16.0); Lymphocytes # (A) 1.6 k/uL (1.0-4.8); Lymphocytes % (A) 14 %; MCH 29.5 pg (25.0-35.0); MCHC 34.8 g/dL (31.0-37.0); MCV 84.8 fL (80.0-100.0); Mean Platelet Volume 7.8; Monocytes # (A) 0.8 k/uL (0-1.0); Monocytes % (A) 8 %; Neutrophils # (A) 8.3 k/uL (1.3-7.7); Neutrophils % (A) 76 %; Platelet Count 276 k/uL (150-450); RBC 4.72 m/uL (3.80-5.40); RDW 12.9 % (11.5-15.5); WBC 10.9 k/uL (3.8-10.6)
[2021-01-11] MEDS ORDERED: MIDAZOLAM 2 MG/2 ML VIAL IVP ONE (12:18)
[2021-01-11 12:19] LABS: ALT 20 U/L (4-34); AST 32 U/L (14-36); African American GFR (CKD) >90 (>60 ml/min/1.73 sqM); Albumin 4.2 g/dL (3.5-5.0); Alkaline Phosphatase 86 U/L (38-126); Anion Gap 8 mmol/L; Blood Urea Nitrogen 7 mg/dL (7-17); Calcium 9.8 mg/dL (8.4-10.2); Carbon Dioxide 30 mmol/L (22-30); Chloride 98 mmol/L (98-107); Glucose 95 mg/dL (74-99); Non-African American GFR(CKD) >90 (>60 ml/min/1.73 sqM); Potassium 3.8 mmol/L (3.5-5.1); Sodium 136 mmol/L (137-145); Total Bilirubin 0.6 mg/dL (0.2-1.3); Total Protein 7.2 g/dL (6.3-8.2)
[2021-01-11] MEDS ORDERED: fentaNYL (PF) 50 MCG/ML 2 ML AMP IVP ONE (12:19)
--- NOTE | 2021-01-11 12:36 | P.ANPRN ---
Procedure Note - Anesthesia - Nerve Block Performed Bilateral Erector Spinae Single Time Out Performed: Yes ([id number]) Date of Procedure: 01/11/21 Procedure Start Time: 12:17 Procedure Stop Time: 12:24 Location of Patient: PreOp Indication: Acute Post-Operative Pain, Requested by Surgeon Specifically requested for management of pain by : Molly Flores Sedation Type: Sedate with meaningful contact maintained Preparation: Sterile Prep Position: Prone Catheter: None Needle Types: Pajunk Needle Gauge: 21 Ultrasound used to visualize needle placement: Yes Ultrasound used to observe medication spread: Yes Injectate: 0.5% Ropivacaine (see comment for volume) (15cc + 15cc NACL each side) Blood Aspirated: No Pain Paresthesia on Injection Noted: No Resistance on Injection: Normal Image Stored and Saved: Yes Events: Uneventful and Well Tolerated
[2021-01-11] MEDS ORDERED: NEOSTIGMINE 1 MG/ML 10 ML VIAL ONE (15:10)
[2021-01-11] MEDS ORDERED: ROPIVACAINE 5 MG/ML 30 ML VIAL ONE (15:10)
[2021-01-11] MEDS ORDERED: ROCURONIUM 10 MG/ML (5 ML VIAL) IV ONE (15:10)
[2021-01-11] MEDS ORDERED: LIDOCAINE 1% INJ 10MG/ML (20 ML MDV) ONE (15:10)
[2021-01-11] MEDS ORDERED: PROPOFOL 10 MG/ML 20 ML VIAL IV ONE (15:10)
[2021-01-11] MEDS ORDERED: HYDROmorphone (PF) 1 MG/ML ONE (15:10)
[2021-01-11] MEDS ORDERED: GLYCOPYRROLATE 0.2 MG/ML 2 ML VIAL ONE (15:10)
[2021-01-11] MEDS ORDERED: MIDAZOLAM 2 MG/2 ML VIAL ONE (15:10)
[2021-01-11] MEDS ORDERED: fentaNYL (PF) 50 MCG/ML 2 ML AMP ONE (15:10)
[2021-01-11] MEDS ORDERED: SODIUM CHLORIDE 0.9% (PF) 10 ML VIAL ONE (15:10)
[2021-01-11] MEDS ORDERED: LIDOCAINE 1%-EPI 1:100,000 20 ML VIAL SQ ONE (15:43)
[2021-01-11] MEDS ORDERED: LACTATED RINGERS 1,000 ML IV ONE ×2 (16:07→18:21)
[2021-01-11] MEDS ORDERED: METOCLOPRAMIDE 5 MG/ML 2 ML VIAL IVP PRN (18:55)
[2021-01-11] MEDS ORDERED: HYDROmorphone 1 MG/ML 1 ML SYRINGE IVP PRN (18:55)
[2021-01-11] MEDS ORDERED: BENZOCAINE/MENTHOL LOZENG 1 EACH LOZENGE MUCOUS MEM PRN (18:55)
--- NOTE | 2021-01-11 18:55 | P.OP ---
Date of Procedure: 01/11/21 Preoperative Diagnosis: Sigmoid diverticulitis with stricture Postoperative Diagnosis: Same, pelvic adhesions Procedure(s) Performed: Robot extensive lysis of adhesions over 1 hour, sigmoid colectomy, low anterior resection 29 mm EEA, intraoperative sigmoidoscopy Anesthesia: GETA, regional, local Surgeon: Molly Flores Estimated Blood Loss (ml): 20 Pathology: other (Sigmoid colectomy) Condition: stable Disposition: floor Operative Findings: 1. Moderate pelvic adhesions from previous hysterectomy involving sigmoid colon to rectum 2. Stricture identified along the sigmoid colon resected distally 3. Lower anterior resection using 29 mm powered Ethicon EEA stapler 4. Extensive lysis of adhesions over 1 hour performed
[2021-01-11] MEDS ORDERED: ALBUTEROL NEB (CONC) 2.5 MG/0.5 ML INHALATION PRN (18:57)
[2021-01-11] MEDS: KETOROLAC 15 MG/ML 1 ML VIAL IVP SCH ×2 (19:27→23:48)
[2021-01-11] MEDS: ONDANSETRON 4 MG/2 ML VIAL IVP SCH ×2 (19:27→23:48)
[2021-01-11] MEDS: ALVIMOPAN 12 MG CAPSULE PO SCH (21:19)
[2021-01-11] MEDS: ALPRAZolam 1 MG TAB PO SCH (23:45)
[2021-01-12] MEDS: ONDANSETRON 4 MG/2 ML VIAL IVP SCH ×2 (05:02→13:23)
[2021-01-12] MEDS: KETOROLAC 15 MG/ML 1 ML VIAL IVP SCH ×2 (05:02→13:22)
[2021-01-12] MEDS ORDERED: ALBUTEROL NEBULIZED 2.5 MG/3 ML INHALATION PRN (07:20)
[2021-01-12] MEDS ORDERED: SODIUM CHLORIDE 0.9% 1,000 ML IV ONE ×2 (07:27)
[2021-01-12] MEDS: LACTATED RINGERS 1,000 ML IV SCH (07:28)
[2021-01-12] MEDS: ALPRAZolam 1 MG TAB PO SCH (08:39)
[2021-01-12] MEDS: ALVIMOPAN 12 MG CAPSULE PO SCH (08:39)
[2021-01-12] MEDS ORDERED: ENOXAPARIN 30 MG/0.3 ML SYRINGE SQ SCH (09:00)
[2021-01-12 09:19] LABS: Basophils # (A) 0.07 X 10*3/uL (0.00-0.10); Basophils % (A) 0.7 %; Eosinophils # (A) 0.01 X 10*3/uL (0.04-0.35); Eosinophils % (A) 0.1 %; HCT 35.6 % (37.2-46.3); HGB 11.2 g/dL (12.0-15.0); Lymphocytes # (A) 1.61 X 10*3/uL (0.90-5.00); Lymphocytes % (A) 15.1 %; MCH 28.5 pg (27.0-32.0); MCHC 31.5 g/dL (32.0-37.0); MCV 90.6 fL (80.0-97.0); Mean Platelet Volume 11.2 fL (9.5-12.2); Monocytes % (A) 8.4 %; Neutrophils # (A) 8.04 X 10*3/uL (1.80-7.70); Neutrophils % (A) 75.3 %; Platelet Count 234 X 10*3/uL (140-440); RBC 3.93 X 10*6/uL (4.10-5.20); RDW 13.3 % (11.5-14.5); WBC 10.67 X 10*3/uL (4.50-10.00)
[2021-01-12] MEDS ORDERED: PIPERACILLIN-TAZOBACTAM 3.375 GM in SODIUM CHLORIDE 0.9% 100 ML IVPB ONE (10:15)
[2021-01-12] MEDS ORDERED: LACTATED RINGERS 1,000 ML IV SCH (10:45)
[2021-01-12 12:10] LABS: Basophils % (A) 0 %; Eosinophils % (A) 0 %; HCT 33.8 % (34.0-46.0); HGB 11.4 gm/dL (11.4-16.0); Lymphocytes % (A) 11 %; MCH 29.7 pg (25.0-35.0); MCHC 33.7 g/dL (31.0-37.0); MCV 88.2 fL (80.0-100.0); Mean Platelet Volume 8.1; Monocytes # (A) 0.5 k/uL (0-1.0); Monocytes % (A) 5 %; Neutrophils # (A) 7.8 k/uL (1.3-7.7); Neutrophils % (A) 83 %; Platelet Count 200 k/uL (150-450); RBC 3.83 m/uL (3.80-5.40); RDW 13.1 % (11.5-15.5); WBC 9.3 k/uL (3.8-10.6)
[2021-01-12 14:07] LABS: African American GFR (CKD) 110.1 (60.0-200.0); Anion Gap 4.5 mmol/L (4.00-12.00); Calcium 8.5 mg/dL (8.7-10.3); Carbon Dioxide 31.5 mmol/L (21.6-31.8); Potassium 3.9 mmol/L (3.5-5.5)
[2021-01-12 15:42] VITALS: BP 95/56; PULSE 74; RESP 17; TEMP 97.7
[2021-01-12] MEDS ORDERED: PIPERACILLIN-TAZOBACTAM 3.375 GM in SODIUM CHLORIDE 0.9% 100 ML IVPB SCH (16:00)
--- NOTE | 2021-01-12 16:29 | P.DS ---
Providers Date of admission: 01/11/21 11:22 Expected date of discharge: 01/12/21 Attending physician: Molly Flores Primary care physician: Derrick Galvez Hospital Course: Discharge diagnosis 1. Sigmoid diverticulitis with stricture and pelvic adhesions status post Robot extensive lysis of adhesions over 1 hour, sigmoid colectomy, low anterior resection, intraoperative sigmoidoscopy Hospital course The patient is a 65-year-old female with history of sigmoid diverticulitis. She completed a colonoscopy which excluded underlying neoplasm. She is status post Robot extensive lysis of adhesions over 1 hour, sigmoid colectomy, low anterior resection, intraoperative sigmoidoscopy for sigmoid diverticulitis with stricture and pelvic adhesions. Patient tolerated surgery well. Her pain is controlled. She's tolerating diet. She has been up and ambulating. She is urinating without difficulty. She is afebrile. She is stable for discharge. Physician Field Marketing Manager note has been reviewed by physician. Signing provider agrees with the documented findings, assessment, and plan of care. Patient Condition at Discharge: Stable Plan - Discharge Summary Discharge Rx Participant: No New Discharge Prescriptions: New Acetaminophen Tab [Tylenol Tab] 650 mg PO Q4H PRN #30 tablet PRN Reason: Pain Continue Citalopram Hydrobromide [CeleXA] 40 mg PO DAILY ALPRAZolam [Xanax] 1 mg PO BID Magnesium 250 mg PO DAILY Albuterol Nebulized (Conc) [Ventolin Nebulized (Conc)] 2.5 mg INHALATION Q6H PRN PRN Reason: Dyspnea Atorvastatin [Lipitor] 40 mg PO HS Discontinued Ferrous Sulfate [Iron (65 MG Elemental)] 325 mg PO MOWEFR Cholecalciferol [Vitamin D3 (25 Mcg = 1000 Iu)] 75 mcg PO DAILY Ascorbic Acid [Vitamin C] 1,000 mg PO DAILY Acetaminophen [Tylenol Extra Strength] 500 - 1,000 mg PO DIRECTED PRN PRN Reason: Pain Vitamin E 400 unit PO DAILY Discharge Medication List ALPRAZolam [Xanax] 1 mg PO BID 03/08/19 [History] Citalopram Hydrobromide [CeleXA] 40 mg PO DAILY 03/08/19 [History] Albuterol Nebulized (Conc) [Ventolin Nebulized (Conc)] 2.5 mg INHALATION Q6H PRN 10/05/20 [History] Magnesium 250 mg PO DAILY 10/05/20 [History] Atorvastatin [Lipitor] 40 mg PO HS 01/05/21 [History] Acetaminophen Tab [Tylenol Tab] 650 mg PO Q4H PRN #30 tablet 01/12/21 [Rx] Follow up Appointment(s)/Referral(s): Molly Flores MD [STAFF PHYSICIAN] - 01/19/21 Activity/Diet/Wound Care/Special Instructions: No lifting over 4 pounds in 4 weeks until February 09November shower. No bath tub soaks for two weeks until January 26 Avoid eating seeds or nuts Use Tylenol scheduled for the next 24-48 hours for best pain relief. Use ice along incisions for the today to prevent swelling. Discharge Disposition: HOME SELF-CARE
== END 2021-01-12 18:05 | disposition home or self-care (01) | DRG 330 ==
LOC: 2ORMAIN 11:22 → 4SSUR 18:45
PROVIDERS: ADMIT Surgery Plastic and Reconstructive Surgery; ATTEND Surgery Plastic and Reconstructive Surgery
PROC: 8E0W4CZ Robotic Assisted Procedure of Trunk Region, Percutaneous Endoscopic Approach (ICD-10-PCS; principal; 2021-01-11 13:20)
PROC: 0DNN4ZZ Release Sigmoid Colon, Percutaneous Endoscopic Approach (ICD-10-PCS; principal; 2021-01-11 13:20)
PROC: 0DNW4ZZ Release Peritoneum, Percutaneous Endoscopic Approach (ICD-10-PCS; principal; 2021-01-11 13:20)
PROC: 0DBN4ZZ Excision of Sigmoid Colon, Percutaneous Endoscopic Approach (ICD-10-PCS; principal; 2021-01-11 13:20)
PROC: 0DJD8ZZ Inspection of Lower Intestinal Tract, Via Natural or Artificial Opening Endoscopic (ICD-10-PCS; principal; 2021-01-11 13:20)
DX: K57.32 Diverticulitis of large intestine without perforation or abscess without bleeding (principal); K56.50 Intestinal adhesions [bands], unspecified as to partial versus complete obstruction; N73.6 Female pelvic peritoneal adhesions (postinfective); Z20.822 Contact with and (suspected) exposure to COVID-19; E66.01 Morbid (severe) obesity due to excess calories; E78.5 Hyperlipidemia, unspecified; J44.9 Chronic obstructive pulmonary disease, unspecified; Z68.35 Body mass index [BMI] 35.0-35.9, adult; Z79.899 Other long term (current) drug therapy; Z86.010 Personal history of colon polyps; Z87.891 Personal history of nicotine dependence; Z90.710 Acquired absence of both cervix and uterus; Z90.89 Acquired absence of other organs; Z90.49 Acquired absence of other specified parts of digestive tract
CPT/HCPCS: 64999; 76942; 80048; 80053; 85025; 86850; 86900; 86901; 87635; 88307; 94640

== ENCOUNTER → 2021-04-12 | Outpatient (CLI) | payer MEDICARE ==
--- NOTE | 2021-04-12 09:49 | US ---
EXAMINATION TYPE: US duplex aorta DATE OF EXAM: 04/12/2021 COMPARISON: CT 02/11/19 CLINICAL HISTORY: Z13.6 cardiovascular disorder screening. EXAM MEASUREMENTS: Abdominal Aorta: Proximal: 2.3 x 2.0 cm Mid: 2.0 x 1.6 cm Distal: 1.4 x 1.3 cm Bifurcation: 0.7 cm 1.0 cm No evidence of AAA Abdominal aortic aneurysm tapers normally to its visualized course. IMPRESSION: 1. No aneurysmal dilatation screening ultrasound
== END | disposition home or self-care (01) ==
LOC: RADUSWWP 09:19
PROVIDERS: ATTEND Family Medicine
DX: Z13.6 Encounter for screening for cardiovascular disorders (principal)
CPT/HCPCS: 93979

== ENCOUNTER → 2021-06-17 | Outpatient (CLI) | payer MEDICARE ==
[2021-06-17 17:50] LABS: ALT 25 U/L (8-44); AST 60 U/L (13-35); African American GFR (CKD) 91.2 (60.0-200.0); Albumin/Globulin Ratio 1.92 (1.60-3.17); Alkaline Phosphatase 80 U/L (41-126); Blood Urea Nitrogen 7.1 mg/dL (9.0-27.0); Calcium 8.9 mg/dL (8.7-10.3); Carbon Dioxide 24.6 mmol/L (20.0-27.5); Chloride 102 mmol/L (96-109); Chol/HDL Ratio 2.12 Ratio; Globulin 2.1 g/dL (1.6-3.3); Glucose 98 mg/dL (70-110); LDL Cholesterol,Calculated 57.8 mg/dL (0.0-131.0); Non-African American GFR(CKD) 78.7 (60.0-200.0); Potassium 4.2 mmol/L (3.5-5.5); Sodium 139 mmol/L (135-145); Total Protein 6.1 g/dL (6.2-8.2)
== END | disposition home or self-care (01) ==
LOC: LABWHC1 08:18
PROVIDERS: ATTEND Nurse Practitioner Adult Health
DX: E78.2 Mixed hyperlipidemia (principal)
CPT/HCPCS: 36415; 80053; 80061

== ENCOUNTER 2021-08-08 03:27 | Inpatient (IN) | payer MEDICARE ==
[2021-08-08] MEDS ORDERED: ALBUTEROL NEBULIZED 2.5 MG/3 ML INHALATION STA (04:08)
--- NOTE | 2021-08-08 04:16 | ED ---
SOB HPI - General Chief Complaint: Shortness of Breath Stated Complaint: Weakness,Cough,Congestion Time Seen by Provider: 08/08/21 03:32 Source: patient Mode of arrival: wheelchair - History of Present Illness Initial Comments: This patient is a 66-year-old woman who presents going on her fifth day of symptoms that include sinus congestion and pressure, cough and now dyspnea. Patient states she is having some thick yellow-green sputum. No hemoptysis. She denies chest pain other then due to cough. She has not noted fever or chills. Patient states she did have coronavirus vaccine as well as booster shot. She took a home antigen test that was negative. MD Complaint: shortness of breath, cough -: days(s) Improves With: nothing Worsens With: exertion Known History Of: COPD Associated Symptoms: cough, sputum production Treatments Prior to Arrival: none - Related Data Home Medications Medication Instructions Recorded Confirmed ALPRAZolam [Xanax] 1 mg PO BID 03/08/19 08/08/21 Citalopram Hydrobromide [CeleXA] 40 mg PO DAILY 03/08/19 08/08/21 Magnesium 250 mg PO DAILY 10/05/20 08/08/21 Atorvastatin [Lipitor] 40 mg PO HS 01/05/21 08/08/21 Albuterol Nebulized [Ventolin 2.5 mg INHALATION RT-QID 08/08/21 08/08/21 Nebulized] Ascorbic Acid [Vitamin C] 1,000 mg PO DAILY 08/08/21 08/08/21 Calcium Carbonate [Calcium] 600 mg PO DAILY 08/08/21 08/08/21 Cholecalciferol [Vitamin D3 (25 50 mcg PO DAILY 08/08/21 08/08/21 Mcg = 1000 Iu)] Cyanocobalamin (Vitamin B-12) 1,000 mcg PO DAILY 08/08/21 08/08/21 [Vitamin B-12] Vitamin E (Dl,Tocopheryl Acet) 400 unit PO DAILY 08/08/21 08/08/21 [Vitamin E (400 Iu = 180 mg)] Zinc 50 mg PO DAILY 08/08/21 08/08/21 Previous Rx's Medication Instructions Recorded Albuterol Inhaler [Ventolin Hfa 1 puff INHALATION RT-QID PRN 30 08/12/21 Inhaler] Days #8 gm Budesonide-Formot 160-4.5 Mcg 2 puff INHALATION BID 30 Days 08/12/21 [Symbicort 160-4.5 Mcg Inhaler] #10.2 gm Famotidine [Pepcid] 20 mg PO BID 30 Days #60 tab 08/12/21 Ipratropium-Albuterol Nebulize 3 ml INHALATION RT-QID 30 Days #90 08/12/21 [Duoneb 0.5 mg-3 mg/3 ml Soln] ml predniSONE 10 mg PO DIRECTED #40 tab 08/12/21 Allergies Allergy/AdvReac Type Severity Reaction Status Date / Time No Known Allergies Allergy Verified 08/08/21 08:08 Review of Systems ROS Statement: Those systems with pertinent positive or pertinent negative responses have been documented in the HPI. ROS Other: All systems not noted in ROS Statement are negative. Constitutional: Denies: fever, chills ENT: Reports: congestion. Denies: epistaxis Respiratory: Reports: cough, dyspnea, wheezes. Denies: hemoptysis Cardiovascular: Reports: dyspnea on exertion. Denies: chest pain, palpitations, orthopnea, edema, syncope Gastrointestinal: Denies: abdominal pain, vomiting, diarrhea Genitourinary: Denies: dysuria, hematuria Musculoskeletal: Denies: back pain Skin: Denies: rash Neurological: Reports: as per HPI, headache. Denies: weakness, numbness, paresthesias Past Medical History Past Medical History: COPD Additional Past Medical History / Comment(s): hx colon polyps History of Any Multi-Drug Resistant Organisms: None Reported Past Surgical History: Appendectomy, Hysterectomy, Tonsillectomy Additional Past Surgical History / Comment(s): Colonoscopies, last attempted 09/2020, lap colectomy Past Anesthesia/Blood Transfusion Reactions: No Reported Reaction Additional Past Anesthesia/Blood Transfusion Reaction / Comment(s): PT REPORTS NEVER RECEIVED Past Psychological History: Anxiety Smoking Status: Former smoker Past Alcohol Use History: None Reported Past Drug Use History: None Reported - Past Family History Mother Family Medical History: Deep Vein Thrombosis (DVT) Additional Family Medical History / Comment(s): (PT UNSURE OF MEDICAL HX FROM ANY OTHER FAMILY) General Exam General appearance: alert, in distress Head exam: Present: atraumatic, normocephalic Neck exam: Present: normal inspection Respiratory exam: Present: respiratory distress, wheezes, decreased breath sounds. Absent: rales, rhonchi, stridor, accessory muscle use Cardiovascular Exam: Present: normal rhythm, tachycardia. Absent: systolic murmur, diastolic murmur, rubs GI/Abdominal exam: Present: soft. Absent: distended, tenderness, guarding, rebound, rigid, mass Extremities exam: Present: normal inspection, normal capillary refill. Absent: pedal edema, calf tenderness Back exam: Present: normal inspection. Absent: CVA tenderness (R), CVA tenderness (L) Neurological exam: Present: alert Skin exam: Present: warm, dry, intact, normal color. Absent: rash Course Vital Signs 08/08/21 08/08/21 08/08/21 03:40 03:43 04:55 Temperature 97.8 F Pulse Rate 122 H 120 H 107 H Respiratory 24 23 20 Rate Blood Pressure 145/71 139/79 120/74 O2 Sat by Pulse 68 L 90 L 94 L Oximetry 08/08/21 08/08/21 08/08/21 06:25 07:27 08:07 Temperature Pulse Rate 105 H 114 H 117 H Respiratory 18 Rate Blood Pressure 135/77 O2 Sat by Pulse 94 L Oximetry 08/08/21 08:12 Temperature 97.5 F L Pulse Rate 99 Respiratory 18 Rate Blood Pressure 130/71 O2 Sat by Pulse 100 Oximetry Medical Decision Making - Lab Data Result diagrams: 08/09/21 07:10 08/12/21 07:06 Lab Results 08/08/21 08/08/21 08/08/21 Range/Units 04:10 04:10 04:48 WBC (3.8-10.6) k/uL RBC (3.80-5.40) m/uL Hgb (11.4-16.0) gm/dL Hct (34.0-46.0) % MCV (80.0-100.0) fL MCH (25.0-35.0) pg MCHC (31.0-37.0) g/dL RDW (11.5-15.5) % Plt Count (150-450) k/uL MPV Neutrophils % (Manual) % Band Neuts % (Manual) % Lymphocytes % (Manual) % Monocytes % (Manual) % Neutrophils # (Manual) (1.3-7.7) k/uL Lymphocytes # (Manual) (1.0-4.8) k/uL Monocytes # (Manual) (0-1.0) k/uL Nucleated RBCs (0-0) /100 WBC Manual Slide Review RBC Morphology PT (9.0-12.0) sec INR (<1.2) APTT (22.0-30.0) sec D-Dimer (<0.60) mg/L FEU Sodium (137-145) mmol/L Potassium (3.5-5.1) mmol/L Chloride (98-107) mmol/L Carbon Dioxide (22-30) mmol/L Anion Gap mmol/L BUN (7-17) mg/dL Creatinine (0.52-1.04) mg/dL Est GFR (CKD-EPI)AfAm (>60 ml/min/1.73 sqM) Est GFR (CKD-EPI)NonAf (>60 ml/min/1.73 sqM) Glucose (74-99) mg/dL Plasma Lactic Acid Con 1.2 (0.7-2.0) mmol/L Calcium (8.4-10.2) mg/dL Total Bilirubin (0.2-1.3) mg/dL AST (14-36) U/L ALT (4-34) U/L Alkaline Phosphatase (38-126) U/L Troponin I (0.000-0.034) ng/mL NT-Pro-B Natriuret Pep pg/mL Total Protein (6.3-8.2) g/dL Albumin (3.5-5.0) g/dL Procalcitonin (0.02-0.09) ng/mL Coronavirus (PCR) Not Detected (Not Detectd) Influenza Type A RNA Not Detected (Not Detectd) Influenza Type B (PCR) Not Detected (Not Detectd) 08/08/21 08/08/21 08/08/21 Range/Units 04:48 04:48 04:48 WBC 11.7 H (3.8-10.6) k/uL RBC 4.26 (3.80-5.40) m/uL Hgb 12.9 (11.4-16.0) gm/dL Hct 38.6 (34.0-46.0) % MCV 90.5 (80.0-100.0) fL MCH 30.3 (25.0-35.0) pg MCHC 33.5 (31.0-37.0) g/dL RDW 12.9 (11.5-15.5) % Plt Count 195 (150-450) k/uL MPV 8.2 Neutrophils % (Manual) 76 % Band Neuts % (Manual) 8 % Lymphocytes % (Manual) 4 % Monocytes % (Manual) 12 % Neutrophils # (Manual) 9.80 H (1.3-7.7) k/uL Lymphocytes # (Manual) 0.47 L (1.0-4.8) k/uL Monocytes # (Manual) 1.40 H (0-1.0) k/uL Nucleated RBCs 0 (0-0) /100 WBC Manual Slide Review Performed RBC Morphology Normal PT 10.1 (9.0-12.0) sec INR 0.9 (<1.2) APTT 26.2 (22.0-30.0) sec D-Dimer 1.78 H (<0.60) mg/L FEU Sodium (137-145) mmol/L Potassium (3.5-5.1) mmol/L Chloride (98-107) mmol/L Carbon Dioxide (22-30) mmol/L Anion Gap mmol/L BUN (7-17) mg/dL Creatinine (0.52-1.04) mg/dL Est GFR (CKD-EPI)AfAm (>60 ml/min/1.73 sqM) Est GFR (CKD-EPI)NonAf (>60 ml/min/1.73 sqM) Glucose (74-99) mg/dL Plasma Lactic Acid Con (0.7-2.0) mmol/L Calcium (8.4-10.2) mg/dL Total Bilirubin (0.2-1.3) mg/dL AST (14-36) U/L ALT (4-34) U/L Alkaline Phosphatase (38-126) U/L Troponin I 0.015 (0.000-0.034) ng/mL NT-Pro-B Natriuret Pep pg/mL Total Protein (6.3-8.2) g/dL Albumin (3.5-5.0) g/dL Procalcitonin (0.02-0.09) ng/mL Coronavirus (PCR) (Not Detectd) Influenza Type A RNA (Not Detectd) Influenza Type B (PCR) (Not Detectd) 08/08/21 08/08/21 08/08/21 Range/Units 04:48 04:48 04:48 WBC (3.8-10.6) k/uL RBC (3.80-5.40) m/uL Hgb (11.4-16.0) gm/dL Hct (34.0-46.0) % MCV (80.0-100.0) fL MCH (25.0-35.0) pg MCHC (31.0-37.0) g/dL RDW (11.5-15.5) % Plt Count (150-450) k/uL MPV Neutrophils % (Manual) % Band Neuts % (Manual) % Lymphocytes % (Manual) % Monocytes % (Manual) % Neutrophils # (Manual) (1.3-7.7) k/uL Lymphocytes # (Manual) (1.0-4.8) k/uL Monocytes # (Manual) (0-1.0) k/uL Nucleated RBCs (0-0) /100 WBC Manual Slide Review RBC Morphology PT (9.0-12.0) sec INR (<1.2) APTT (22.0-30.0) sec D-Dimer (<0.60) mg/L FEU Sodium 126 L (137-145) mmol/L Potassium 3.7 (3.5-5.1) mmol/L Chloride 90 L (98-107) mmol/L Carbon Dioxide 27 (22-30) mmol/L Anion Gap 9 mmol/L BUN 15 (7-17) mg/dL Creatinine 0.47 L (0.52-1.04) mg/dL Est GFR (CKD-EPI)AfAm >90 (>60 ml/min/1.73 sqM) Est GFR (CKD-EPI)NonAf >90 (>60 ml/min/1.73 sqM) Glucose 140 H (74-99) mg/dL Plasma Lactic Acid Con (0.7-2.0) mmol/L Calcium 8.5 (8.4-10.2) mg/dL Total Bilirubin 1.7 H (0.2-1.3) mg/dL AST 40 H (14-36) U/L ALT 20 (4-34) U/L Alkaline Phosphatase 86 (38-126) U/L Troponin I (0.000-0.034) ng/mL NT-Pro-B Natriuret Pep 400 pg/mL Total Protein 6.3 (6.3-8.2) g/dL Albumin 3.4 L (3.5-5.0) g/dL Procalcitonin 0.24 H (0.02-0.09) ng/mL Coronavirus (PCR) (Not Detectd) Influenza Type A RNA (Not Detectd) Influenza Type B (PCR) (Not Detectd) Disposition Clinical Impression: Dyspnea, COPD exacerbation Narrative: Suspected pneumonia Disposition: ADMITTED IP TO THIS HOSP Condition: Stable
--- NOTE | 2021-08-08 04:23 | XR ---
EXAM: XR Chest, 1 View CLINICAL HISTORY: ITS.REASON XR Reason: dyspnea TECHNIQUE: Frontal view of the chest. COMPARISON: Comparison made to prior chest exam from February 11, 2019. FINDINGS: Lungs: Peribronchial thickening with increased interstitial opacities in the lower lobes. No consolidation. Pleural space: Unremarkable. No pneumothorax. Heart: Unremarkable. No cardiomegaly. Mediastinum: Unremarkable. Bones/joints: Unremarkable. IMPRESSION: Findings concern for bronchitis with pneumonitis in the lower lobes. No consolidation.
[2021-08-08] MEDS ORDERED: ALBUTEROL HFA INHALER INHALATION STA (04:25)
[2021-08-08 05:01] LABS: HCT 38.6 % (34.0-46.0); HGB 12.9 gm/dL (11.4-16.0); MCH 30.3 pg (25.0-35.0); MCHC 33.5 g/dL (31.0-37.0); MCV 90.5 fL (80.0-100.0); Mean Platelet Volume 8.2; Platelet Count 195 k/uL (150-450); RBC 4.26 m/uL (3.80-5.40); RDW 12.9 % (11.5-15.5); WBC 11.7 k/uL (3.8-10.6)
[2021-08-08 05:23] LABS: ALT 20 U/L (4-34); AST 40 U/L (14-36); African American GFR (CKD) >90 (>60 ml/min/1.73 sqM); Albumin 3.4 g/dL (3.5-5.0); Alkaline Phosphatase 86 U/L (38-126); Anion Gap 9 mmol/L; Blood Urea Nitrogen 15 mg/dL (7-17); Calcium 8.5 mg/dL (8.4-10.2); Carbon Dioxide 27 mmol/L (22-30); Chloride 90 mmol/L (98-107); Glucose 140 mg/dL (74-99); Non-African American GFR(CKD) >90 (>60 ml/min/1.73 sqM); Potassium 3.7 mmol/L (3.5-5.1); Sodium 126 mmol/L (137-145); Total Bilirubin 1.7 mg/dL (0.2-1.3); Total Protein 6.3 g/dL (6.3-8.2)
[2021-08-08 05:30] LABS: INR 0.9 (<1.2); Partial Thromboplastin Time 26.2 sec (22.0-30.0); Prothrombin Time 10.1 sec (9.0-12.0)
[2021-08-08] MEDS ORDERED: ALBUTEROL NEBULIZED 2.5 MG/3 ML INHALATION PRN (06:48)
[2021-08-08] MEDS ORDERED: AZITHROMYCIN 500 MG TAB PO STA (06:48)
[2021-08-08] MEDS ORDERED: PNEUMONIA PROTOCOL UTILIZED 1 EACH MISC PO PRN (06:48)
[2021-08-08] MEDS: IPRATROPIUM-ALBUTEROL 3 ML NEB INHALATION SCH ×4 (07:26→19:54)
--- NOTE | 2021-08-08 07:34 | CT ---
EXAMINATION TYPE: CT chest angio for PE DATE OF EXAM: 08/08/2021 COMPARISON: Chest x-ray 08/08/2021, chest CT 02/11/2019 HISTORY: ELEVATED D DIMER/SALMA CT DLP: 283.3 mGycm Automated exposure control for dose reduction was used. CONTRAST: CT Chest for pulmonary embolism performed with with IV Contrast, patient injected with 100 mL of Isov ue 370. Three-dimensional reconstructions performed on an alternate workstation FINDINGS: LUNGS: The lungs show new pulmonary nodules, right lower lobe axial image 125 there is a 4 mm soft ti ssue nodule,, axial image #131 similar-appearing lesion, axial image 117 right lower lobe approximate ly 6 mm nodule is present, smaller nodule axial image 113 right lower lobe, 4 mm nodule axial image 1 19 right lower lobe, axial image 86 right middle lobe shows a 2 mm nodule, axial image 79 right middl e lobe shows a 4 mm nodule left lower lobe axial image #125 in the subpleural location shows a stable nodular density, possible post inflammatory change. There are areas of bronchial wall thickening, so me groundglass nodularity also present axial image #58 right lower lobe, suggestion of cavitary lesio ns measuring 5 to 6 mm. Additional groundglass nodule with possible cavitary lesion axial image 41 le ft upper lobe. Soft tissue nodule axial image 70 left upper lobe anteriorly is noted, additional nodu les also present, axial image 50 left upper lobe measures 3 to 4 mm. Some areas of possible tree-in-b ud density are scattered within the lungs. Emphysematous changes are also present predominantly at th e upper lobes. There is no pleural effusion or pneumothorax seen. The tracheobronchial tree is paten t with bronchial wall thickening. MEDIASTINUM: There is satisfactory enhancement of the pulmonary artery and its branches, there is no CT evidence for pulmonary embolism. There is mediastinal adenopathy, aorticopulmonary window nodes a re enlarged, enlarged hilar nodes. No pericardial effusion is seen. AORTA: Root of the aorta is borderline increased measuring approximately 3.9 to 4 cm. OTHER: There is some mild prominence of the left adrenal gland greater than right. IMPRESSION: Indeterminate subcentimeter pulmonary nodules and possible cavitary and or tree-in-bud lesions with m ediastinal and hilar adenopathy and bronchial wall thickening, follow-up is recommended, consider pul monary consult. No evident pulmonary embolism. Additional findings above.
[2021-08-08] MEDS: SODIUM CHLORIDE 0.9% 1,000 ML IV SCH ×3 (08:10→19:09)
[2021-08-08 09:05] LABS: Band Neutrophils % 8 %; Lymphocytes # (M) 0.47 k/uL (1.0-4.8); Neutrophils % (M) 76 %; Nucleated Red Blood Cells 0 /100 WBC (0-0); Total Cells Counted 100
[2021-08-08 09:06] LABS: RBC Morphology Normal
--- NOTE | 2021-08-08 13:43 | P.HPIM ---
History of Present Illness 66-year-old the female came in with complains of nasal congestion cough with greenish sputum production. Has been going on for about 5 days. Patient is hypoxicand wheezing patient does have history of smoking doesn't use any oxygen at home patient is presently on 4 dysfunction because of his CT of the chest was obtained which did not show any pulmonary embolism but did show some pulmonary nodules and possibility of right upper lobe cavitary lesion with hilar lymphadenopathy. Sputum cultures and blood cultures were obtained patient doesn't have any fever. Does have some mild leukocytosis. Pulmonary was consulted. Patient is also hyponatremic. REVIEW OF SYSTEMS: CONSTITUTIONAL: No fever, no malaise, no fatigue. HEENT: No recent visual problems or hearing problems. .CARDIOVASCULAR: No chest pain, orthopnea, PND, no palpitations, no syncope. PULMONARY: no hemoptysis. GASTROINTESTINAL: No diarrhea, no nausea, no vomiting, no abdominal pain. NEUROLOGICAL: No headaches, no weakness, no numbness. HEMATOLOGICAL: Denies any bleeding or petechiae. GENITOURINARY: Denies any burning micturition, frequency, or urgency. MUSCULOSKELETAL/RHEUMATOLOGICAL: Denies any joint pain, swelling, or any muscle pain. ENDOCRINE: Denies any polyuria or polydipsia. The rest of the 14-point review of systems is negative. PHYSICAL EXAMINATION: GENERAL: The patient is alert and oriented x3, not in any acute distress. Well developed, well nourished. HEENT: Pupils are round and equally reacting to light. EOMI. No scleral icterus. No conjunctival pallor. Normocephalic, atraumatic. No pharyngeal erythema. No thyromegaly. CARDIOVASCULAR: S1 and S2 present. No murmurs, rubs, or gallops. PULMONARY: Chest is clear to auscultation, no wheezing or crackles. ABDOMEN: Soft, nontender, nondistended, normoactive bowel sounds. No palpable organomegaly. MUSCULOSKELETAL: No joint swelling or deformity. EXTREMITIES: No cyanosis, clubbing, or pedal edema. NEUROLOGICAL: Gross neurological examination did not reveal any focal deficits. SKIN: No rashes. Assessment and plan -Bacterial bronchitis, sinusitis: Patient will continue on Rocephin this continue his azithromycin there is no evidence of pneumonia on the CT but that there may be a cavitary lesion I'll obtain a pro-calcitonin level. Pulmonology will be consulted -Acute hypoxic respiratory failure etiology of which is not clear pulmonary consultation as mentioned above and may be a competent of COPD patient will continued on albuterol ipratropium and inhalational steroids patient doesn't have significant wheezing on exam -Multiple pulmonary nodules with lymphadenopathy, may need bronchoscopy per primary consultation as mentioned above -Quit smoking about a month ago -Hypovolemic hyponatremia: IV fluids 100 mL per hour -Depression -Hyperlipidemia DVT prophylaxis: Lovenox Past Medical History Past Medical History: COPD, Pneumonia Additional Past Medical History / Comment(s): hx colon polyps History of Any Multi-Drug Resistant Organisms: None Reported Past Surgical History: Appendectomy, Hysterectomy, Tonsillectomy Additional Past Surgical History / Comment(s): Colonoscopies, last attempted 09/2020, lap colectomy Past Anesthesia/Blood Transfusion Reactions: No Reported Reaction Additional Past Anesthesia/Blood Transfusion Reaction / Comment(s): PT REPORTS NEVER RECEIVED Past Psychological History: Anxiety Additional Psychological History / Comment(s): occ panic attacks Smoking Status: Former smoker Past Alcohol Use History: None Reported Past Drug Use History: None Reported - Past Family History Mother Family Medical History: Deep Vein Thrombosis (DVT) Additional Family Medical History / Comment(s): (PT UNSURE OF MEDICAL HX FROM ANY OTHER FAMILY) Medications and Allergies Home Medications Medication Instructions Recorded Confirmed Type ALPRAZolam [Xanax] 1 mg PO BID 03/08/19 08/08/21 History Citalopram Hydrobromide [CeleXA] 40 mg PO DAILY 03/08/19 08/08/21 History Magnesium 250 mg PO DAILY 10/05/20 08/08/21 History Atorvastatin [Lipitor] 40 mg PO HS 01/05/21 08/08/21 History Albuterol Nebulized [Ventolin 2.5 mg INHALATION RT-QID 08/08/21 08/08/21 History Nebulized] Ascorbic Acid [Vitamin C] 1,000 mg PO DAILY 08/08/21 08/08/21 History Calcium Carbonate [Calcium] 600 mg PO DAILY 08/08/21 08/08/21 History Cholecalciferol [Vitamin D3 (25 50 mcg PO DAILY 08/08/21 08/08/21 History Mcg = 1000 Iu)] Cyanocobalamin (Vitamin B-12) 1,000 mcg PO DAILY 08/08/21 08/08/21 History [Vitamin B-12] Vitamin E (Dl,Tocopheryl Acet) 400 unit PO DAILY 08/08/21 08/08/21 History [Vitamin E (400 Iu = 180 mg)] Zinc 50 mg PO DAILY 08/08/21 08/08/21 History Allergies Allergy/AdvReac Type Severity Reaction Status Date / Time No Known Allergies Allergy Verified 08/08/21 08:08 Physical Exam Vitals: Vital Signs Temp Pulse Pulse Resp BP BP Pulse Ox 08/08/21 12:21 100 08/08/21 12:12 100 08/08/21 08:40 98.4 F 114 H 23 120/61 94 L 08/08/21 08:12 97.5 F L 99 18 130/71 100 08/08/21 08:07 117 H 08/08/21 07:27 114 H 08/08/21 06:25 105 H 18 135/77 94 L 08/08/21 04:55 107 H 20 120/74 94 L 08/08/21 03:43 120 H 23 139/79 90 L 08/08/21 03:40 97.8 F 122 H 24 145/71 68 L Intake and Output 08/07/21 08/08/21 08/08/21 22:59 06:59 14:59 Other: Weight 70.307 kg 70.307 kg Results CBC & Chem 7: 08/08/21 04:48 08/08/21 04:48 Labs: Abnormal Lab Results - Last 24 Hours (Table) 08/08/21 08/08/21 08/08/21 Range/Units 04:48 04:48 04:48 WBC 11.7 H (3.8-10.6) k/uL Neutrophils # (Manual) 9.80 H (1.3-7.7) k/uL Lymphocytes # (Manual) 0.47 L (1.0-4.8) k/uL Monocytes # (Manual) 1.40 H (0-1.0) k/uL D-Dimer 1.78 H (<0.60) mg/L FEU Sodium 126 L (137-145) mmol/L Chloride 90 L (98-107) mmol/L Creatinine 0.47 L (0.52-1.04) mg/dL Glucose 140 H (74-99) mg/dL Total Bilirubin 1.7 H (0.2-1.3) mg/dL AST 40 H (14-36) U/L Albumin 3.4 L (3.5-5.0) g/dL Thrombosis Risk Factor Assmnt - Choose All That Apply Any of the Below Risk Factors Present?: Yes Each Factor Represents 1 point: Abnormal pulmonary function (COPD) Other Risk Factors: Yes Each Risk Factor Represents 2 Points: Age 61-74 years Other congenital or acquired thrombophilia - If yes, enter type in comment: No Thrombosis Risk Factor Assessment Total Risk Factor Score: 3 Thrombosis Risk Factor Assessment Level: Moderate Risk
[2021-08-08] MEDS: BUDESONIDE 0.5 MG/2 ML NEBU INHALATION SCH (19:54)
[2021-08-08] MEDS: ATORVASTATIN 40 MG TAB PO SCH (21:01)
[2021-08-09] MEDS: SODIUM CHLORIDE 0.9% 1,000 ML IV SCH ×3 (05:07→19:07)
[2021-08-09] MEDS: BUDESONIDE 0.5 MG/2 ML NEBU INHALATION SCH (07:14)
[2021-08-09] MEDS: IPRATROPIUM-ALBUTEROL 3 ML NEB INHALATION SCH ×4 (07:15→18:51)
[2021-08-09] MEDS ORDERED: AZITHROMYCIN 500 MG TAB PO SCH (09:00)
[2021-08-09 09:24] LABS: HCT 36.2 % (37.2-46.3); HGB 11.3 g/dL (12.0-15.0); MCHC 31.2 g/dL (32.0-37.0); MCV 93.1 fL (80.0-97.0); Mean Platelet Volume 10.8 fL (9.5-12.2); NRBC Per 100 WBC 0 /100 WBCS (0.0-0.0); Platelet Count 192 X 10*3/uL (140-440); RBC 3.89 X 10*6/uL (4.10-5.20); RDW 13.4 % (11.5-14.5); WBC 9.77 X 10*3/uL (4.50-10.00)
[2021-08-09 09:36] LABS: African American GFR (CKD) 124.9 (60.0-200.0); Anion Gap 7.6 mmol/L (10.00-18.00); Calcium 8.3 mg/dL (8.7-10.3); Carbon Dioxide 30.4 mmol/L (20.0-27.5); Non-African American GFR(CKD) 107.8 (60.0-200.0); Potassium 4.3 mmol/L (3.5-5.5)
[2021-08-09] MEDS: MAGNESIUM OXIDE 400 MG TAB PO SCH (10:38)
[2021-08-09] MEDS: CITALOPRAM HYDROBROMIDE 20 MG TAB PO SCH (10:38)
[2021-08-09] MEDS: CHOLECALCIFEROL 25 MCG (1000 IU) TABLET PO SCH (10:39)
[2021-08-09] MEDS: ENOXAPARIN 40 MG/0.4 ML SYRINGE SQ SCH (10:39)
--- NOTE | 2021-08-09 15:20 | P.CNPUL ---
History of Present Illness Consult date: 08/09/21 Requesting physician: Eduardo Katz Reason for consult: dyspnea, cough, COPD, hypoxemia, pneumonia, abnormal CXR/CT Chief complaint: Shortness of breath. History of present illness: Pulmonary consult dated 08/09/2021. 66-year-old female who presented to the emergency department on August 08, co mplaining of shortness of breath, cough, chest congestion, and phlegm production. Her primary care physician is Dr. Derrick Galvez. She smoked for about 30 years. Does not smoke currently. She does not use home O2. The patient was seen and admitted for a COPD exacerbation and possible underlying p neumonia. Again she denies any fever or chills. No chest pain or chest discomfort. She did not test positive for coronavirus. She did have the vaccination and booster shot as well. She has a history of COPD, but has never seen a lung doctor. She also apparently has a history of hyperlipidemia, and colonic polyps. White count 9.77, hemoglobin 11.3, hematocrit 36.2, and platelet count normal. D-dimer was 1.78. Sodium 132, potassium 4.3, chlorides 94, CO2 30, anion gap 8, BUN 8, creatinine 0.4. Rest of the labs look okay. Her calcitonin level was 0.24. She tested negative for coronavirus, influenza A, and influenza B. Chest x-ray showed some peribronchial thickening with increased interstitial opacities in the lower lobes, consistent with either bronchitis or pneumonia. CT of the chest reveals some mediastinal hilar adenopathy, likely reactive, as well as some nodular and cavitary changes, in both lungs. The patient is currently on azithromycin and Rocephin. Also on prednisone, and updrafts. He is currently on no supplemental oxygen. No IV fluids. Review of Systems REVIEW OF SYSTEMS: CONSTITUTIONAL: [Negative.] NEUROLOGIC: [ Negative.] HEENT: [ Negative.] CARDIAC: [Negative.] PULMONARY: Shortness of breath, chest congestion, cough, and yellow green phlegm production. GI: [Negative.] : [Negative.] RHEUMATOLOGIC: [ Negative.] IMMUNOLOGIC: [ Negative.] ENDOCRINE: [Negative. ] DERMATOLOGIC: [Negative.] Past Medical History Past Medical History: COPD, Pneumonia Additional Past Medical History / Comment(s): hx colon polyps History of Any Multi-Drug Resistant Organisms: None Reported Past Surgical History: Appendectomy, Hysterectomy, Tonsillectomy Additional Past Surgical History / Comment(s): Colonoscopies, last attempted 09/2020, lap colectomy Past Anesthesia/Blood Transfusion Reactions: No Reported Reaction Additional Past Anesthesia/Blood Transfusion Reaction / Comment(s): PT REPORTS NEVER RECEIVED Past Psychological History: Anxiety Additional Psychological History / Comment(s): occ panic attacks Smoking Status: Former smoker Past Alcohol Use History: None Reported Past Drug Use History: None Reported - Past Family History Mother Family Medical History: Deep Vein Thrombosis (DVT) Additional Family Medical History / Comment(s): (PT UNSURE OF MEDICAL HX FROM ANY OTHER FAMILY) Medications and Allergies Home Medications Medication Instructions Recorded Confirmed Type ALPRAZolam [Xanax] 1 mg PO BID 03/08/19 08/08/21 History Citalopram Hydrobromide [CeleXA] 40 mg PO DAILY 03/08/19 08/08/21 History Magnesium 250 mg PO DAILY 10/05/20 08/08/21 History Atorvastatin [Lipitor] 40 mg PO HS 01/05/21 08/08/21 History Albuterol Nebulized [Ventolin 2.5 mg INHALATION RT-QID 08/08/21 08/08/21 History Nebulized] Ascorbic Acid [Vitamin C] 1,000 mg PO DAILY 08/08/21 08/08/21 History Calcium Carbonate [Calcium] 600 mg PO DAILY 08/08/21 08/08/21 History Cholecalciferol [Vitamin D3 (25 50 mcg PO DAILY 08/08/21 08/08/21 History Mcg = 1000 Iu)] Cyanocobalamin (Vitamin B-12) 1,000 mcg PO DAILY 08/08/21 08/08/21 History [Vitamin B-12] Vitamin E (Dl,Tocopheryl Acet) 400 unit PO DAILY 08/08/21 08/08/21 History [Vitamin E (400 Iu = 180 mg)] Zinc 50 mg PO DAILY 08/08/21 08/08/21 History Allergies Allergy/AdvReac Type Severity Reaction Status Date / Time No Known Allergies Allergy Verified 08/08/21 08:08 Physical Exam Osteopathic Statement: *. No significant issues noted on an osteopathic structural exam other than those noted in the History and Physical/Consult. Vitals: Vital Signs Temp Pulse Pulse Resp BP Pulse Ox 08/09/21 11:33 98 F 96 20 120/65 97 08/09/21 11:19 95 08/09/21 11:06 94 08/09/21 07:30 98 08/09/21 07:15 94 96 08/09/21 06:48 96 08/09/21 04:11 98.3 F 93 20 122/59 97 08/08/21 20:19 98.1 F 96 20 147/73 97 08/08/21 20:06 100 08/08/21 19:55 20 08/08/21 19:54 100 08/08/21 16:19 100 08/08/21 16:05 100 Intake and Output 08/09/21 08/09/21 08/09/21 06:59 14:59 22:59 Intake Total 1800 Balance 1800 Intake: Intake, IV Titration 1200 Amount Sodium Chloride 0.9% 1, 1200 000 ml @ 100 mls/hr IV . Q10H [facility] Rx#:[id number] Oral 600 Other: Voiding Method Toilet # Voids 4 No acute distress, oriented 3. Sitting at the bedside. No supplemental oxygen. No conversational dyspnea or use of accessory muscles. HEENT examination is grossly unremarkable. Neck supple. Full range of motion. No adenopathy thyromegaly or neck vein distention. Cardiovascular examination reveals regular rhythm rate. S1-S2 normal. No S3 or S4. No discernible murmur noted. Heart rate 96 bpm. Heart sounds are distant. Lungs reveal bilateral coarse inspiratory and expiratory wheezes and rhonchi. No crackles. There is prolongation on forced maneuver. Breath sounds equal bi laterally. Abdomen soft bowel sounds are heard. No masses or tenderness. Extremities are intact. No cyanosis clubbing or edema. Skin is without rash or lesion. Neurologic examination is brief but nonfocal. Results - Laboratory Findings CBC and BMP: 08/09/21 07:10 08/09/21 07:10 PT/INR, D-dimer PT 10.1 sec (9.0-12.0) 08/08/21 04:48 INR 0.9 (<1.2) 08/08/21 04:48 D-Dimer 1.78 mg/L FEU (<0.60) H 08/08/21 04:48 Abnormal lab findings: Abnormal Labs 08/08/21 08/08/21 08/08/21 04:48 04:48 04:48 WBC 11.7 H RBC Hgb Hct MCHC Neutrophils # (Manual) 9.80 H Lymphocytes # (Manual) 0.47 L Monocytes # (Manual) 1.40 H D-Dimer 1.78 H Sodium 126 L Chloride 90 L Carbon Dioxide Anion Gap BUN Creatinine 0.47 L Glucose 140 H Calcium Total Bilirubin 1.7 H AST 40 H Albumin 3.4 L Procalcitonin 08/08/21 08/09/21 08/09/21 04:48 07:10 07:10 WBC RBC 3.89 L Hgb 11.3 L Hct 36.2 L MCHC 31.2 L Neutrophils # (Manual) Lymphocytes # (Manual) Monocytes # (Manual) D-Dimer Sodium 132 L Chloride 94 L Carbon Dioxide 30.4 H Anion Gap 7.60 L BUN 8.0 L Creatinine 0.4 L Glucose 131 H Calcium 8.3 L Total Bilirubin AST Albumin Procalcitonin 0.24 H - Diagnostic Findings Chest x-ray: image reviewed CT scan - chest: image reviewed Assessment and Plan Assessment: COPD exacerbation, complicated by purulent tracheobronchitis/bronchopneumonia, in a patient with heavy tobacco use previously. Prior history of heavy tobacco use for 25-30 years. History of colonic polyps. History of hyperlipidemia. Plan: Plan dated 08/09/2021. The patient is currently on albuterol sulfate and ipratropium bromide. The patient's also receiving prednisone, Rocephin, azithromycin, and Pulmicort. Additional recommendations and suggestions are forthcoming. We will continue to follow. Post discharge, the patient does need follow-up in our office for complete pulmonary function testing. Additional recommendations and suggestions are forthcoming. Prognosis is guarded. Time with Patient: Greater than 30
[2021-08-09] MEDS: predniSONE 20 MG TAB PO SCH (16:20)
[2021-08-09] MEDS: BUDESONIDE 1 MG/2 ML NEBU INHALATION SCH (18:51)
[2021-08-09] MEDS: FORMOTEROL FUMARATE 20 MCG/2 ML NEBU INHALATION SCH (18:51)
[2021-08-09] MEDS: ATORVASTATIN 40 MG TAB PO SCH (20:02)
[2021-08-09] MEDS: FAMOTIDINE 20 MG TAB PO SCH (20:02)
[2021-08-10] MEDS: SODIUM CHLORIDE 0.9% 1,000 ML IV SCH ×3 (00:32→12:25)
--- NOTE | 2021-08-10 01:09 | P.PN ---
Subjective Progress Note Date: 08/09/21 66-year-old the female came in with complains of nasal congestion cough with greenish sputum production. Has been going on for about 5 days. Patient is hypoxicand wheezing patient does have history of smoking doesn't use any oxygen at home patient is presently on 4 dysfunction because of his CT of the chest was obtained which did not show any pulmonary embolism but did show some pulmonary nodules and possibility of right upper lobe cavitary lesion with hilar lymphadenopathy. Sputum cultures and blood cultures were obtained patient doesn't have any fever. Does have some mild leukocytosis. Pulmonary was consulted. Patient is also hyponatremic. 08/09/2021 Patient is seen and evaluated in follow-up this morning and continues on 3-4 liter of 02 via NC and does not normally wear 02 in the outpatient setting. Preliminary sputum cultures growing many gram positive and gram negative pathogens and awaiting finalized culture. Patient is continued on IV ceftriaxone. Pulmonary following and patient will also continue on breathing inhalational treatments and will continue to wean FI02 as tolerated. Review of systems: Constitutional: No reports of fatigue, fever, or chills Cardiovascular: No reports of chest pain or palpitations Respiratory: No reports of worsening shortness of breath although not back to baseline GI: No reports of nausea, vomiting, or diarrhea : No reports of dysuria or retention Neurovascular: No reports of weakness or numbness All medications have been reviewed Active Medications Albuterol Sulfate (Albuterol Nebulized 2.5 Mg/3 Ml) 2.5 mg INHALATION RT-Q4H PRN PRN Reason: Shortness Of Breath Or Wheezing Albuterol/Ipratropium (Ipratropium-Albuterol 3 Ml Neb) 3 ml INHALATION RT-QID [facility] Last Admin: 08/09/21 11:06 Dose: 3 ml Documented by: Alprazolam (Alprazolam 0.5 Mg Tab) 0.5 mg PO BID PRN PRN Reason: Anxiety Atorvastatin Calcium (Atorvastatin 40 Mg Tab) 40 mg PO HS [facility] Last Admin: 08/08/21 21:01 Dose: 40 mg Documented by: Budesonide (Budesonide 0.5 Mg/2 Ml Nebu) 0.5 mg INHALATION RT-BID [facility] Last Admin: 08/09/21 07:14 Dose: 0.5 mg Documented by: Cholecalciferol (Cholecalciferol 25 Mcg (1000 Iu) Tablet) 50 mcg PO DAILY [facility] Last Admin: 08/09/21 10:39 Dose: 50 mcg Documented by: Citalopram Hydrobromide (Citalopram Hydrobromide 20 Mg Tab) 40 mg PO DAILY [facility] Last Admin: 08/09/21 10:38 Dose: 40 mg Documented by: Enoxaparin Sodium (Enoxaparin 40 Mg/0.4 Ml Syringe) 40 mg SQ DAILY [facility] Last Admin: 08/09/21 10:39 Dose: 40 mg Documented by: Famotidine (Famotidine 20 Mg Tab) 20 mg PO BID [facility] Sodium Chloride (Saline 0.9%) 1,000 mls @ 20 mls/hr IV .Q24H [facility] Last Admin: 08/09/21 05:08 Dose: Not Given Documented by: Ceftriaxone Sodium 2 gm/ (Sodium Chloride) 50 mls @ 100 mls/hr IVPB Q24HR [facility] Stop: 08/12/21 09:29 Last Admin: 08/09/21 10:38 Dose: 100 mls/hr Documented by: Sodium Chloride (Saline 0.9%) 1,000 mls @ 100 mls/hr IV .Q10H [facility] Last Admin: 08/09/21 05:07 Dose: 100 mls/hr Documented by: Magnesium Oxide (Magnesium Oxide 400 Mg Tab) 400 mg PO DAILY [facility] Last Admin: 08/09/21 10:38 Dose: 400 mg Documented by: Miscellaneous Information (Pneumonia Protocol Utilized 1 Each [facility]) 1 each PO ONCE PRN PRN Reason: Per Protocol Prednisone (Prednisone 20 Mg Tab) 40 mg PO DAILY [facility] PHYSICAL EXAMINATION: GENERAL: The patient is alert and oriented x3, not in any acute distress. Well developed, well nourished. HEENT: Pupils are round and equally reacting to light. EOMI. No scleral icterus. No conjunctival pallor. Normocephalic, atraumatic. No pharyngeal erythema. No thyromegaly. CARDIOVASCULAR: S1 and S2 present. No murmurs, rubs, or gallops. PULMONARY: diminished air entry bilaterally with mild expiratory wheezing noted on exam. ABDOMEN: Soft, nontender, nondistended, normoactive bowel sounds. No palpable organomegaly. MUSCULOSKELETAL: No joint swelling or deformity. EXTREMITIES: No cyanosis, clubbing, or pedal edema. NEUROLOGICAL: Gross neurological examination did not reveal any focal deficits. SKIN: No rashes. Assessment and plan: -Bacterial bronchitis, sinusitis: Patient will continue on Rocephin. there is no evidence of pneumonia on the CT but that there may be a cavitary lesion, procalcitonin not impressive at .24 and pulmonary following -Acute hypoxic respiratory failure etiology of which is not clear, most likely COPD acute exacerbation, pulmonary following and patient maintained on 3L via NC along with pulmicort, duonebs and oral steroids. -Multiple pulmonary nodules with lymphadenopathy, may need bronchoscopy per primary consultation as mentioned above -Quit smoking about a month ago -Hypovolemic hyponatremia: IV fluids 100 mL per hour, improving and will continue and repeat am labs. -Depression -Hyperlipidemia -DVT prophylaxis: Lovenox Plan: Recommend to continue with current medications. Pulmonary following and will continue with IV ceftriaxone. Patient with expiratory wheezing on exam and will initiate prednisone. Repeat labs and chest xray in the am. Continue to wean FI02 as tolerated. Encouraged increased activity as tolerated. Will evaluate for home 02. Objective - Vital Signs Vital signs: Vital Signs Temp 98.3 F 08/09/21 04:11 Pulse 98 08/09/21 07:30 Resp 20 08/09/21 04:11 BP 122/59 08/09/21 04:11 Pulse Ox 96 08/09/21 07:15 Intake & Output 08/08/21 08/09/21 08/09/21 18:59 06:59 18:59 Intake Total 1800 Balance 1800 Weight 70.307 kg Intake: Intake, IV Titration 1200 Amount Sodium Chloride 0.9% 1, 1200 000 ml @ 100 mls/hr IV . Q10H [facility] Rx#:[id number] Oral 600 Other: Voiding Method Toilet # Voids 3 4 - Labs CBC & Chem 7: 08/09/21 07:10 08/09/21 07:10 Labs: Abnormal Lab Results - Last 24 Hours (Table) 08/08/21 Range/Units 04:48 Procalcitonin 0.24 H (0.02-0.09) ng/mL Microbiology - Last 24 Hours (Table) 08/08/21 10:14 Gram Stain - Preliminary Sputum Sputum Culture - Preliminary
[2021-08-10] MEDS: FORMOTEROL FUMARATE 20 MCG/2 ML NEBU INHALATION SCH ×2 (07:21→19:31)
[2021-08-10] MEDS: BUDESONIDE 1 MG/2 ML NEBU INHALATION SCH ×2 (07:21→19:31)
[2021-08-10] MEDS: IPRATROPIUM-ALBUTEROL 3 ML NEB INHALATION SCH ×4 (07:21→19:31)
[2021-08-10 07:29] LABS: African American GFR (CKD) >90 (>60 ml/min/1.73 sqM); Anion Gap 2 mmol/L; Blood Urea Nitrogen 6 mg/dL (7-17); Calcium 8.3 mg/dL (8.4-10.2); Carbon Dioxide 34 mmol/L (22-30); Chloride 98 mmol/L (98-107); Glucose 121 mg/dL (74-99); Non-African American GFR(CKD) >90 (>60 ml/min/1.73 sqM); Potassium 4.2 mmol/L (3.5-5.1); Sodium 134 mmol/L (137-145)
[2021-08-10] MEDS: MAGNESIUM OXIDE 400 MG TAB PO SCH (07:33)
[2021-08-10] MEDS: CHOLECALCIFEROL 25 MCG (1000 IU) TABLET PO SCH (07:33)
[2021-08-10] MEDS: FAMOTIDINE 20 MG TAB PO SCH ×2 (07:33→21:00)
[2021-08-10] MEDS: CITALOPRAM HYDROBROMIDE 20 MG TAB PO SCH (07:33)
[2021-08-10] MEDS: ENOXAPARIN 40 MG/0.4 ML SYRINGE SQ SCH (07:33)
[2021-08-10] MEDS: predniSONE 20 MG TAB PO SCH (07:33)
[2021-08-10] MEDS: ACETAMINOPHEN TAB 325 MG TAB PO PRN ×2 (08:06→20:09)
--- NOTE | 2021-08-10 08:19 | XR ---
EXAMINATION TYPE: XR chest 1V portable DATE OF EXAM: 08/10/2021 Comparison: 08/08/2021 Clinical History: 66-year-old female shortness of breath Findings: The cardiomediastinal silhouette, aorta, and pulmonary vasculature are within normal limits. Mild hy perinflation is demonstrated. Increased interstitial densities in the mid and lower lungs without sig nificant change. The possible cavitary lesion of the right upper lobe not well demonstrated radiograp h. Impression: Stable mid and lower lung interstitial infiltrates corresponding to nodular and tree-in-bud opacities and possible cavitary change on CT. Correlate to exclude the possibility of atypical mycobacterial o r fungal infections.
--- NOTE | 2021-08-10 13:16 | P.PN ---
Subjective Progress Note Date: 08/10/21 Principal diagnosis: COPD exacerbation. Pulmonary consult dated 08/09/2021. 66-year-old female who presented to the emergency department on August 08, complaining of shortness of breath, cough, chest congestion, and phlegm production. Her primary care physician is Dr. Derrick Galvez. She smoked for about 30 years. Does not smoke currently. She does not use home O2. The pat ient was seen and admitted for a COPD exacerbation and possible underlying pneumonia. Again she denies any fever or chills. No chest pain or chest discomfort. She did not test positive for coronavirus. She did have the vaccination and booster shot as well. She has a history of COPD, but has never seen a lung doctor. She also apparently has a history of hyperlipidemia, and colonic polyps. White count 9.77, hemoglobin 11.3, hematocrit 36.2, and platelet count normal. D-dimer was 1.78. Sodium 132, potassium 4.3, chlorides 94, CO2 30, anion gap 8, BUN 8, creatinine 0.4. Rest of the labs look okay. Her calcitonin level was 0.24. She tested negative for coronavirus, influenza A, and influenza B. Chest x-ray showed some peribronchial thickening with increased interstitial opacities in the lower lobes, consistent with either bronchitis or pneumonia. CT of the chest reveals some mediastinal hilar adenopathy, likely reactive, as well as some nodular and cavitary changes, in both lungs. The patient is currently on azithromycin and Rocephin. Also on prednisone, and updrafts. He is currently on no supplemental oxygen. No IV fluids. Progress note dated 08/10/2021. 66-year-old female that was seen in the emergency room, on August 08, complaining of shortness of breath, cough, chest congestion, and phlegm production. Her primary care provider is Dr. Derrick Galvez. The patient smoked for about 30 years, but quit a number years back. She does not use home O2. Currently, she is feeling better. She is on a couple liters of nasal oxygen. She's getting saline at 100 mL an hour. She stated that her breathing is much improved. Sodium 134, potassium 4.2, chlorides 98, CO2 34, anion gap 2, BUN 6, creatinine 0.43. Chest x-ray suggests mid and lower lung interstitial in filtrates, which may suggest an atypical infection. Objective - Vital Signs Vital signs: Vital Signs Temp 98 F 08/10/21 11:34 Pulse 97 08/10/21 11:34 Resp 20 08/10/21 11:34 BP 101/59 08/10/21 11:34 Pulse Ox 94 L 08/10/21 11:34 Intake & Output 08/09/21 08/10/21 08/10/21 18:59 06:59 18:59 Intake Total 1800 Balance 1800 Intake: Intake, IV Titration 1200 Amount Sodium Chloride 0.9% 1, 1200 000 ml @ 100 mls/hr IV . Q10H [facility] Rx#:[id number] Oral 600 Other: Voiding Method Toilet Toilet # Voids 3 3 - Exam No acute distress, oriented 3. Sitting at the bedside. Currently on 2 L nasal cannula. No conversational dyspnea or use of accessory muscles. HEENT examination is grossly unremarkable. Neck supple. Full range of motion. No adenopathy thyromegaly or neck vein distention. Cardiovascular examination reveals regular rhythm rate. S1-S2 normal. No S3 or S4. No discernible murmur noted. Heart rate 97 bpm. Heart sounds are distant. Lungs reveal bilateral coarse inspiratory and expiratory wheezes and rhonchi. No crackles. There is prolongation on forced maneuver. Breath sounds equal bilaterally. Saturations are 94-95%. Abdomen soft bowel sounds are heard. No masses or tenderness. Extremities are intact. No cyanosis clubbing or edema. Skin is without rash or lesion. Neurologic examination is brief but nonfocal. - Labs CBC & Chem 7: 08/09/21 07:10 08/10/21 06:47 Labs: Abnormal Lab Results - Last 24 Hours (Table) 08/10/21 Range/Units 06:47 Sodium 134 L (137-145) mmol/L Carbon Dioxide 34 H (22-30) mmol/L BUN 6 L (7-17) mg/dL Creatinine 0.43 L (0.52-1.04) mg/dL Glucose 121 H (74-99) mg/dL Calcium 8.3 L (8.4-10.2) mg/dL Microbiology - Last 24 Hours (Table) 08/08/21 08:00 Blood Culture - Preliminary Blood No Growth after 48 hours 08/08/21 07:45 Blood Culture - Preliminary Blood No Growth after 48 hours 08/08/21 10:14 Gram Stain - Final Sputum Sputum Culture - Final Assessment and Plan Assessment: COPD exacerbation, complicated by purulent tracheobronchitis/bronchopneumonia, in a patient with heavy tobacco use previously. Prior history of heavy tobacco use for 25-30 years. History of colonic polyps. History of hyperlipidemia. Plan: Plan dated 08/09/2021. The patient is currently on albuterol sulfate and ipratropium bromide. The patient's also receiving prednisone, Rocephin, azithromycin, and Pulmicort. Additional recommendations and suggestions are forthcoming. We will continue to follow. Post discharge, the patient does need follow-up in our office for complete pulmonary function testing. Additional recommendations and suggestions are forthcoming. Prognosis is guarded. Plan dated 08/10/2021. The patient is on appropriate medications including updrafts, prednisone, and antibiotics. I will continue to follow make recommendations where appropriate. After discharge, the patient will need follow-up in our office for complete pulmonary function testing, and a 6 minute walk distance. Additional recommendations and suggestions are forthcoming. Prognosis is guarded. Time with Patient: Less than 30
--- NOTE | 2021-08-10 13:35 | P.PN ---
Subjective Progress Note Date: 08/10/21 66-year-old the female came in with complains of nasal congestion cough with greenish sputum production. Has been going on for about 5 days. Patient is hypoxicand wheezing patient does have history of smoking doesn't use any oxygen at home patient is presently on 4 dysfunction because of his CT of the chest was obtained which did not show any pulmonary embolism but did show some pulmonary nodules and possibility of right upper lobe cavitary lesion with hilar lymphadenopathy. Sputum cultures and blood cultures were obtained patient doesn't have any fever. Does have some mild leukocytosis. Pulmonary was consulted. Patient is also hyponatremic. 08/09/2021 Patient is seen and evaluated in follow-up this morning and continues on 3-4 liter of 02 via NC and does not normally wear 02 in the outpatient setting. Preliminary sputum cultures growing many gram positive and gram negative pathogens and awaiting finalized culture. Patient is continued on IV ceftriaxone. Pulmonary following and patient will also continue on breathing inhalational treatments and will continue to wean FI02 as tolerated. 08/10/2021 Patient is seen today and continues to be bronchospastic and expiratory wheezing on exam and maintained on breathing inhalational treatments along with oral prednisone and will continue. Pulmonary following and will continue on current medication regimen. Patient had chest x-ray this morning which shows stable mid and lower lung interstitial infiltrates corresponding to nodular and tree-in-bud opacification is and possible cavitary change on CT to correlate to exclude the possibility of an atypical mycobacterial or fungal infection. Patient is maintained on IV ceftriaxoneand will continue. blood cultures remain negative and sputum culture finalized showing moderate normal respiratory justin with no staph aureus or pseudomonas aeruginosa is recovered. Patient is currently 98% on 2 L via nasal cannula and discussed with nursing staff about weaning FiO2 as tolerated. Continue with breathing treatments and encouraged increase activity. Review of systems: Constitutional: No reports of fatigue, fever, or chills Cardiovascular: No reports of chest pain or palpitations Respiratory: No reports of worsening shortness of breath although not back to baseline , continues with cough GI: No reports of nausea, vomiting, or diarrhea : No reports of dysuria or retention Neurovascular: No reports of weakness or numbness All medications have been reviewed Active Medications Acetaminophen (Acetaminophen Tab 325 Mg Tab) 650 mg PO Q6HR PRN PRN Reason: Fever and/ or mild Pain Last Admin: 08/10/21 08:06 Dose: 650 mg Documented by: Albuterol/Ipratropium (Ipratropium-Albuterol 3 Ml Neb) 3 ml INHALATION RT-QID [facility] Last Admin: 08/10/21 10:59 Dose: 3 ml Documented by: Alprazolam (Alprazolam 0.5 Mg Tab) 0.5 mg PO BID PRN PRN Reason: Anxiety Atorvastatin Calcium (Atorvastatin 40 Mg Tab) 40 mg PO HS [facility] Last Admin: 08/09/21 20:02 Dose: 40 mg Documented by: Budesonide (Budesonide 1 Mg/2 Ml Nebu) 1 mg INHALATION RT-BID [facility] Last Admin: 08/10/21 07:21 Dose: 1 mg Documented by: Cholecalciferol (Cholecalciferol 25 Mcg (1000 Iu) Tablet) 50 mcg PO DAILY [facility] Last Admin: 08/10/21 07:33 Dose: 50 mcg Documented by: Citalopram Hydrobromide (Citalopram Hydrobromide 20 Mg Tab) 40 mg PO DAILY [facility] Last Admin: 08/10/21 07:33 Dose: 40 mg Documented by: Enoxaparin Sodium (Enoxaparin 40 Mg/0.4 Ml Syringe) 40 mg SQ DAILY [facility] Last Admin: 08/10/21 07:33 Dose: 40 mg Documented by: Famotidine (Famotidine 20 Mg Tab) 20 mg PO BID [facility] Last Admin: 08/10/21 07:33 Dose: 20 mg Documented by: Formoterol Fumarate (Formoterol Fumarate 20 Mcg/2 Ml Nebu) 20 mcg INHALATION RT-BID [facility] Last Admin: 08/10/21 07:21 Dose: 20 mcg Documented by: Sodium Chloride (Saline 0.9%) 1,000 mls @ 20 mls/hr IV .Q24H [facility] Last Admin: 08/10/21 00:32 Dose: Not Given Documented by: Ceftriaxone Sodium 2 gm/ (Sodium Chloride) 50 mls @ 100 mls/hr IVPB Q24HR [facility] Stop: 08/12/21 09:29 Last Admin: 08/10/21 07:32 Dose: 100 mls/hr Documented by: Sodium Chloride (Saline 0.9%) 1,000 mls @ 100 mls/hr IV .Q10H [facility] Last Admin: 08/10/21 12:25 Dose: 100 mls/hr Documented by: Magnesium Oxide (Magnesium Oxide 400 Mg Tab) 400 mg PO DAILY [facility] Last Admin: 08/10/21 07:33 Dose: 400 mg Documented by: Miscellaneous Information (Pneumonia Protocol Utilized 1 Each [facility] [place] 1 each PO ONCE PRN PRN Reason: Per Protocol Prednisone (Prednisone 20 Mg Tab) 40 mg PO DAILY [facility] Last Admin: 08/10/21 07:33 Dose: 40 mg Documented by: PHYSICAL EXAMINATION: GENERAL: The patient is alert and oriented x3, not in any acute distress. Well developed, well nourished. HEENT: Pupils are round and equally reacting to light. EOMI. No scleral icterus. No conjunctival pallor. Normocephalic, atraumatic. No pharyngeal erythema. No thyromegaly. CARDIOVASCULAR: S1 and S2 present. No murmurs, rubs, or gallops. PULMONARY: diminished air entry bilaterally with mild expiratory wheezing and some scattered rhonchi noted on exam. ABDOMEN: Soft, nontender, nondistended, normoactive bowel sounds. No palpable organomegaly. MUSCULOSKELETAL: No joint swelling or deformity. EXTREMITIES: No cyanosis, clubbing, or pedal edema. NEUROLOGICAL: Gross neurological examination did not reveal any focal deficits. SKIN: No rashes. Assessment and plan: -Bacterial bronchitis, sinusitis: Patient will continue on Rocephin. there is no evidence of pneumonia on the CT but that there may be a cavitary lesion, pulmonary following. On discharge patient will need outpatient pulmonary follow-up for further testing and PFT testing as well -Acute hypoxic respiratory failure etiology of which is not clear, most likely COPD acute exacerbation, pulmonary following and patient maintained on 2L via NC along with pulmicort, duonebs and oral steroids. Discussed with nursing staff about weaning FiO2 as tolerated -Multiple pulmonary nodules with lymphadenopathy, may need bronchoscopy per primary consultation as mentioned above -Quit smoking about a month ago -Hypovolemic hyponatremia: improved on IV fluids and will discontinue. Sodium is 134 -Depression -Hyperlipidemia -DVT prophylaxis: Lovenox Plan: Recommend to continue with current medications. Pulmonary following and will continue with IV ceftriaxone. Patient with expiratory wheezing on exam and will continue prednisone. Continue to wean FI02 as tolerated. Encouraged increased activity as tolerated. Will evaluate for home 02. Possible discharge in 24 hours. Objective - Vital Signs Vital signs: Vital Signs Temp 98.0 F 08/10/21 04:21 Pulse 96 01/25/22 07:51 Resp 16 08/10/21 04:21 BP 120/67 08/10/21 04:21 Pulse Ox 98 08/10/21 07:21 Intake & Output 08/09/21 08/10/21 08/10/21 18:59 06:59 18:59 Intake Total 1800 Balance 1800 Intake: Intake, IV Titration 1200 Amount Sodium Chloride 0.9% 1, 1200 000 ml @ 100 mls/hr IV . Q10H [facility] Rx#:[id number] Oral 600 Other: Voiding Method Toilet Toilet # Voids 3 3 - Labs CBC & Chem 7: 08/09/21 07:10 08/10/21 06:47 Labs: Abnormal Lab Results - Last 24 Hours (Table) 08/10/21 Range/Units 06:47 Sodium 134 L (137-145) mmol/L Carbon Dioxide 34 H (22-30) mmol/L BUN 6 L (7-17) mg/dL Creatinine 0.43 L (0.52-1.04) mg/dL Glucose 121 H (74-99) mg/dL Calcium 8.3 L (8.4-10.2) mg/dL Microbiology - Last 24 Hours (Table) 08/08/21 08:00 Blood Culture - Preliminary Blood No Growth after 24 hours 08/08/21 07:45 Blood Culture - Preliminary Blood No Growth after 24 hours
[2021-08-10] MEDS: ALPRAZolam 0.5 MG TAB PO PRN (21:00)
[2021-08-10] MEDS: ATORVASTATIN 40 MG TAB PO SCH (21:00)
[2021-08-11] MEDS: BUDESONIDE 1 MG/2 ML NEBU INHALATION SCH ×2 (07:10→19:36)
[2021-08-11] MEDS: FORMOTEROL FUMARATE 20 MCG/2 ML NEBU INHALATION SCH ×2 (07:10→19:36)
[2021-08-11] MEDS: IPRATROPIUM-ALBUTEROL 3 ML NEB INHALATION SCH ×4 (07:10→19:36)
[2021-08-11] MEDS: ACETAMINOPHEN TAB 325 MG TAB PO PRN ×2 (08:06→20:22)
[2021-08-11] MEDS: CHOLECALCIFEROL 25 MCG (1000 IU) TABLET PO SCH (09:08)
[2021-08-11] MEDS: FAMOTIDINE 20 MG TAB PO SCH ×2 (09:10→20:22)
[2021-08-11] MEDS: CITALOPRAM HYDROBROMIDE 20 MG TAB PO SCH (09:10)
[2021-08-11] MEDS: ENOXAPARIN 40 MG/0.4 ML SYRINGE SQ SCH (09:10)
[2021-08-11] MEDS: MAGNESIUM OXIDE 400 MG TAB PO SCH (09:11)
[2021-08-11] MEDS: predniSONE 20 MG TAB PO SCH (09:11)
--- NOTE | 2021-08-11 11:23 | P.PN ---
Subjective Progress Note Date: 08/11/21 Principal diagnosis: COPD exacerbation. Pulmonary consult dated 08/09/2021. 66-year-old female who presented to the emergency department on August 08, complaining of shortness of breath, cough, chest congestion, and phlegm production. Her primary care physician is Dr. Derrick Galvez. She smoked for about 30 years. Does not smoke currently. She does not use home O2. The pat ient was seen and admitted for a COPD exacerbation and possible underlying pneumonia. Again she denies any fever or chills. No chest pain or chest discomfort. She did not test positive for coronavirus. She did have the vaccination and booster shot as well. She has a history of COPD, but has never seen a lung doctor. She also apparently has a history of hyperlipidemia, and colonic polyps. White count 9.77, hemoglobin 11.3, hematocrit 36.2, and platelet count normal. D-dimer was 1.78. Sodium 132, potassium 4.3, chlorides 94, CO2 30, anion gap 8, BUN 8, creatinine 0.4. Rest of the labs look okay. Her calcitonin level was 0.24. She tested negative for coronavirus, influenza A, and influenza B. Chest x-ray showed some peribronchial thickening with increased interstitial opacities in the lower lobes, consistent with either bronchitis or pneumonia. CT of the chest reveals some mediastinal hilar adenopathy, likely reactive, as well as some nodular and cavitary changes, in both lungs. The patient is currently on azithromycin and Rocephin. Also on prednisone, and updrafts. He is currently on no supplemental oxygen. No IV fluids. Progress note dated 08/10/2021. 66-year-old female that was seen in the emergency room, on August 08, complaining of shortness of breath, cough, chest congestion, and phlegm production. Her primary care provider is Dr. Derrick Galvez. The patient smoked for about 30 years, but quit a number years back. She does not use home O2. Currently, she is feeling better. She is on a couple liters of nasal oxygen. She's getting saline at 100 mL an hour. She stated that her breathing is much improved. Sodium 134, potassium 4.2, chlorides 98, CO2 34, anion gap 2, BUN 6, creatinine 0.43. Chest x-ray suggests mid and lower lung interstitial in filtrates, which may suggest an atypical infection. Progress note dated 08/11/2021. 66-year-old female with a history of COPD, admitted with a COPD exacerbation. Her primary care physician is Dr. Derrick Galvez. The patient came with complaints of shortness of breath, cough, chest congestion, wheezing, and phlegm production. She is feeling better. She remains on 2 L nasal cannula. She's not receiving any IV fluids. When she is laying perfectly still in bed, she doesn't feel bad. Any activity makes her short of breath. In my opinion, she is not quite ready to be discharged. No new laboratory data is noted. Chest x- ray from August 10 was reviewed. Objective - Vital Signs Vital signs: Vital Signs Temp 97.9 F 08/11/21 07:38 Pulse 94 08/11/21 11:12 Resp 20 08/11/21 09:51 BP 129/65 08/11/21 07:38 Pulse Ox 100 08/11/21 07:38 Intake & Output 08/10/21 08/11/21 08/11/21 18:59 06:59 18:59 Intake Total 480 Balance 480 Intake: Oral 480 Other: Voiding Method Toilet Toilet # Voids 8 # Bowel Movements 2 1 - Exam No acute distress, oriented 3. Sitting at the bedside. Currently on 2 L nasal cannula. No conversational dyspnea or use of accessory muscles. HEENT examination is grossly unremarkable. Neck supple. Full range of motion. No adenopathy thyromegaly or neck vein distention. Cardiovascular examination reveals regular rhythm rate. S1-S2 normal. No S3 or S4. No discernible murmur noted. Heart rate 94 bpm. Heart sounds are distant. Lungs reveal bilateral coarse inspiratory and expiratory wheezes and rhonchi. No crackles. There is prolongation on forced maneuver. Breath sounds equal bilaterally. Saturations are 94 %. The patient is still quite wheezy. Abdomen soft bowel sounds are heard. No masses or tenderness. Extremities are intact. No cyanosis clubbing or edema. Skin is without rash or lesion. Neurologic examination is brief but nonfocal. - Labs CBC & Chem 7: 08/09/21 07:10 08/10/21 06:47 Labs: Microbiology - Last 24 Hours (Table) 08/08/21 08:00 Blood Culture - Preliminary Blood No Growth after 48 hours 08/08/21 07:45 Blood Culture - Preliminary Blood No Growth after 48 hours 08/08/21 10:14 Gram Stain - Final Sputum Sputum Culture - Final Assessment and Plan Assessment: COPD exacerbation, complicated by purulent tracheobronchitis/bronchopneumonia, in a patient with heavy tobacco use previously. Prior history of heavy tobacco use for 25-30 years. History of colonic polyps. History of hyperlipidemia. Plan: Plan dated 08/09/2021. The patient is currently on albuterol sulfate and ipratropium bromide. The patient's also receiving prednisone, Rocephin, azithromycin, and Pulmicort. Additional recommendations and suggestions are forthcoming. We will continue to follow. Post discharge, the patient does need follow-up in our office for complete pulmonary function testing. Additional recommendations and suggestions are forthcoming. Prognosis is guarded. Plan dated 08/10/2021. The patient is on appropriate medications including updrafts, prednisone, and antibiotics. I will continue to follow make recommendations where appropriate. After discharge, the patient will need follow-up in our office for complete pulmonary function testing, and a 6 minute walk distance. Additional recommendations and suggestions are forthcoming. Prognosis is guarded. Plan dated 08/11/2021. Currently, the patient's on budesonide, formoterol, albuterol sulfate, and ipratropium bromide. In addition, the patient is on prednisone 40 mg a day. The patient continues to improve on a daily basis. She's not quite ready for discharge. I like to see her in the office when she is discharged. She remains on IV Rocephin as well. Prognosis is guarded. We will continue to see her and make recommendations where appropriate. Time with Patient: Less than 30
[2021-08-11] MEDS: ALPRAZolam 0.5 MG TAB PO PRN ×2 (14:54→20:22)
[2021-08-11] MEDS: ATORVASTATIN 40 MG TAB PO SCH (20:22)
--- NOTE | 2021-08-11 23:16 | P.PN ---
Subjective Progress Note Date: 08/11/21 66-year-old the female came in with complains of nasal congestion cough with greenish sputum production. Has been going on for about 5 days. Patient is hypoxicand wheezing patient does have history of smoking doesn't use any oxygen at home patient is presently on 4 dysfunction because of his CT of the chest was obtained which did not show any pulmonary embolism but did show some pulmonary nodules and possibility of right upper lobe cavitary lesion with hilar lymphadenopathy. Sputum cultures and blood cultures were obtained patient doesn't have any fever. Does have some mild leukocytosis. Pulmonary was consulted. Patient is also hyponatremic. 08/09/2021 Patient is seen and evaluated in follow-up this morning and continues on 3-4 liter of 02 via NC and does not normally wear 02 in the outpatient setting. Preliminary sputum cultures growing many gram positive and gram negative pathogens and awaiting finalized culture. Patient is continued on IV ceftriaxone. Pulmonary following and patient will also continue on breathing inhalational treatments and will continue to wean FI02 as tolerated. 08/10/2021 Patient is seen today and continues to be bronchospastic and expiratory wheezing on exam and maintained on breathing inhalational treatments along with oral prednisone and will continue. Pulmonary following and will continue on current medication regimen. Patient had chest x-ray this morning which shows stable mid and lower lung interstitial infiltrates corresponding to nodular and tree-in-bud opacification is and possible cavitary change on CT to correlate to exclude the possibility of an atypical mycobacterial or fungal infection. Patient is maintained on IV ceftriaxoneand will continue. blood cultures remain negative and sputum culture finalized showing moderate normal respiratory justin with no staph aureus or pseudomonas aeruginosa is recovered. Patient is currently 98% on 2 L via nasal cannula and discussed with nursing staff about weaning FiO2 as tolerated. Continue with breathing treatments and encouraged increase activity. 08/11/2021 Patient is evaluated this morning and is currently sitting up in bed and denies any worsening shortness of breath while at rest. Patient continues to be short of breath with minimal exertion and continued on 2L via NC. Pulmonary following. Discussed with nursing staff about weaning FI02 as tolerated and doing a home 02 eval to assess oxygen status and case management provided with a prescription for 02 in the event she may require 02 on discharge to manage COPD. Patient has not required 02 in the outpatient setting previously. Patient desats quickly on room air. Patient continues on breathing inhalational treatments along with oral prednisone and will continue. IV ceftriaxone as well. Review of systems: Constitutional: No reports of fatigue, fever, or chills Cardiovascular: No reports of chest pain or palpitations Respiratory: No reports of worsening shortness of breath although not back to baseline , continues with cough GI: No reports of nausea, vomiting, or diarrhea : No reports of dysuria or retention Neurovascular: No reports of weakness or numbness All medications have been reviewed Active Medications Acetaminophen (Acetaminophen Tab 325 Mg Tab) 650 mg PO Q6HR PRN PRN Reason: Fever and/ or mild Pain Last Admin: 08/11/21 20:22 Dose: 650 mg Documented by: Albuterol/Ipratropium (Ipratropium-Albuterol 3 Ml Neb) 3 ml INHALATION RT-QID [facility] Last Admin: 08/11/21 19:36 Dose: 3 ml Documented by: Alprazolam (Alprazolam 0.5 Mg Tab) 0.5 mg PO BID PRN PRN Reason: Anxiety Last Admin: 08/11/21 20: Dose: 0.5 mg Documented by: Atorvastatin Calcium (Atorvastatin 40 Mg Tab) 40 mg PO HS [facility] Last Admin: 08/11/21 20:22 Dose: 40 mg Documented by: Budesonide (Budesonide 1 Mg/2 Ml Nebu) 1 mg INHALATION RT-BID [facility] Last Admin: 08/11/21 19:36 Dose: 1 mg Documented by: Cholecalciferol (Cholecalciferol 25 Mcg (1000 Iu) Tablet) 50 mcg PO DAILY [facility] Last Admin: 08/11/21 09:08 Dose: 50 mcg Documented by: Citalopram Hydrobromide (Citalopram Hydrobromide 20 Mg Tab) 40 mg PO DAILY [facility] Last Admin: 08/11/21 09:10 Dose: 40 mg Documented by: Enoxaparin Sodium (Enoxaparin 40 Mg/0.4 Ml Syringe) 40 mg SQ DAILY [facility] Last Admin: 08/11/21 09:10 Dose: 40 mg Documented by: Famotidine (Famotidine 20 Mg Tab) 20 mg PO BID [facility] Last Admin: 08/11/21 20:22 Dose: 20 mg Documented by: Formoterol Fumarate (Formoterol Fumarate 20 Mcg/2 Ml Nebu) 20 mcg INHALATION RT-BID [facility] Last Admin: 01/26/22 19:36 Dose: 20 mcg Documented by: Ceftriaxone Sodium 2 gm/ (Sodium Chloride) 50 mls @ 100 mls/hr IVPB Q24HR [facility] Stop: 08/12/21 09:29 Last Admin: 08/11/21 09:07 Dose: 100 mls/hr Documented by: Magnesium Oxide (Magnesium Oxide 400 Mg Tab) 400 mg PO DAILY [facility] Last Admin: 08/11/21 09:11 Dose: 400 mg Documented by: Miscellaneous Information (Pneumonia Protocol Utilized 1 Each [facility]) 1 each PO ONCE PRN PRN Reason: Per Protocol Prednisone (Prednisone 20 Mg Tab) 40 mg PO DAILY [facility] Last Admin: 08/11/21 09:11 Dose: 40 mg Documented by: PHYSICAL EXAMINATION: GENERAL: The patient is alert and oriented x3, not in any acute distress. Well developed, well nourished. HEENT: Pupils are round and equally reacting to light. EOMI. No scleral icterus. No conjunctival pallor. Normocephalic, atraumatic. No pharyngeal erythema. No thyromegaly. CARDIOVASCULAR: S1 and S2 present. No murmurs, rubs, or gallops. PULMONARY: diminished air entry bilaterally with mild expiratory wheezing and some scattered rhonchi noted on exam. ABDOMEN: Soft, nontender, nondistended, normoactive bowel sounds. No palpable organomegaly. MUSCULOSKELETAL: No joint swelling or deformity. EXTREMITIES: No cyanosis, clubbing, or pedal edema. NEUROLOGICAL: Gross neurological examination did not reveal any focal deficits. SKIN: No rashes. Assessment and plan: -Bacterial bronchitis, sinusitis: Patient will continue on Rocephin. there is no evidence of pneumonia on the CT but that there may be a cavitary lesion, pulmonary following. On discharge patient will need outpatient pulmonary follow-up for further testing and PFT testing as well -Acute hypoxic respiratory failure etiology of which is not clear, most likely COPD acute exacerbation, pulmonary following and patient maintained on 2L via NC along with pulmicort, duonebs and oral steroids. Discussed with nursing staff about weaning FiO2 as tolerated, home 02 eval in process as patient continues to desat quickly with room air and exertion. -Multiple pulmonary nodules with lymphadenopathy, may need bronchoscopy per primary consultation as mentioned above -Quit smoking about a month ago -Hypovolemic hyponatremia, improved -Depression -Hyperlipidemia -DVT prophylaxis: Lovenox Plan: Recommend to continue with current medications. Pulmonary following and will continue with IV ceftriaxone. Patient with expiratory wheezing on exam and will continue prednisone. Continue to wean FI02 as tolerated. Currently requiring 2 liters. Encouraged increased activity as tolerated. Will evaluate for home 02. Patient desaturates quickly on room air with minimal exertion. Will repeat am labs. Possible discharge in 24-48 hours. Objective - Vital Signs Vital signs: Vital Signs Temp 97.9 F 08/11/21 07:38 Pulse 97 08/11/21 07:38 Resp 22 08/11/21 07:38 BP 129/65 08/11/21 07:38 Pulse Ox 100 08/11/21 07:38 Intake & Output 08/10/21 08/11/21 08/11/21 18:59 06:59 18:59 Other: Voiding Method Toilet # Voids 8 # Bowel Movements 2 - Labs CBC & Chem 7: 08/09/21 07:10 08/10/21 06:47 Labs: Microbiology - Last 24 Hours (Table) 08/08/21 08:00 Blood Culture - Preliminary Blood No Growth after 48 hours 08/08/21 07:45 Blood Culture - Preliminary Blood No Growth after 48 hours 08/08/21 10:14 Gram Stain - Final Sputum Sputum Culture - Final
[2021-08-12 07:53] LABS: African American GFR (CKD) >90 (>60 ml/min/1.73 sqM); Blood Urea Nitrogen 8 mg/dL (7-17); Calcium 8.5 mg/dL (8.4-10.2); Chloride 94 mmol/L (98-107); Glucose 87 mg/dL (74-99); Non-African American GFR(CKD) >90 (>60 ml/min/1.73 sqM); Potassium 3.2 mmol/L (3.5-5.1); Sodium 136 mmol/L (137-145)
[2021-08-12] MEDS: FORMOTEROL FUMARATE 20 MCG/2 ML NEBU INHALATION SCH (07:54)
[2021-08-12] MEDS: IPRATROPIUM-ALBUTEROL 3 ML NEB INHALATION SCH ×2 (07:54→11:18)
[2021-08-12] MEDS: BUDESONIDE 1 MG/2 ML NEBU INHALATION SCH (07:54)
[2021-08-12 07:56] VITALS: TEMP 98.4
[2021-08-12 08:01] LABS: Anion Gap 5 mmol/L; Carbon Dioxide 37 mmol/L (22-30)
[2021-08-12 08:10] VITALS: RESP 17
[2021-08-12] MEDS ORDERED: POTASSIUM CHLORIDE ER 20 MEQ TAB.ER PO STA (08:59)
[2021-08-12] MEDS: ALPRAZolam 0.5 MG TAB PO PRN (09:08)
[2021-08-12] MEDS: CITALOPRAM HYDROBROMIDE 20 MG TAB PO SCH (09:23)
[2021-08-12] MEDS: CHOLECALCIFEROL 25 MCG (1000 IU) TABLET PO SCH (09:23)
[2021-08-12] MEDS: ENOXAPARIN 40 MG/0.4 ML SYRINGE SQ SCH (09:43)
[2021-08-12] MEDS: MAGNESIUM OXIDE 400 MG TAB PO SCH (09:44)
[2021-08-12] MEDS: FAMOTIDINE 20 MG TAB PO SCH (09:44)
[2021-08-12] MEDS: predniSONE 20 MG TAB PO SCH (10:25)
--- NOTE | 2021-08-12 11:46 | P.PN ---
Subjective Progress Note Date: 08/12/21 66-year-old female who presented to the emergency department on August 08, complaining of shortness of breath, cough, chest congestion, and phlegm production. Her primary care physician is Dr. Derrick Galvez. She smoked for about 30 years. Does not smoke currently. She does not use home O2. The patient was seen and admitted for a COPD exacerbation and possible underlying pneumonia. Again she denies any fever or chills. No chest pain or chest discomfort. She did not test positive for coronavirus. She did have the vaccination and booster shot as well. She has a history of COPD, but has never seen a lung doctor. She also apparently has a history of hyperlipidemia, and colonic polyps. White count 9.77, hemoglobin 11.3, hematocrit 36.2, and platelet count normal. D-dimer was 1.78. Sodium 132, potassium 4.3, chlorides 94, CO2 30, anion gap 8, BUN 8, creatinine 0.4. Rest of the labs look okay. Her calcitonin level was 0.24. She tested negative for coronavirus, influenza A, and influenza B. Chest x-ray showed some peribronchial thickening with increased interstitial opacities in the lower lobes, consistent with either bronchitis or pneumonia. CT of the chest reveals some mediastinal hilar adenopathy, likely reactive, as well as some nodular and cavitary changes, in both lungs. The patient is currently on azithromycin and Rocephin. Also on prednisone, and updrafts. He is currently on no supplemental oxygen. No IV fluids. Progress note dated 08/10/2021. 66-year-old female that was seen in the emergency room, on August 08, complaining of shortness of breath, cough, chest congestion, and phlegm production. Her primary care provider is Dr. Derrick Galvez. The patient smoked for about 30 years, but quit a number years back. She does not use home O2. Currently, she is feeling better. She is on a couple liters of nasal oxygen. She's getting saline at 100 mL an hour. She stated that her breathing is much improved. Sodium 134, potassium 4.2, chlorides 98, CO2 34, anion gap 2, BUN 6, creatinine 0.43. Chest x-ray suggests mid and lower lung interstitial infilt rates, which may suggest an atypical infection. Progress note dated 08/11/2021. 66-year-old female with a history of COPD, admitted with a COPD exacerbation. Her primary care physician is Dr. Derrick Galvez. The patient came with complaints of shortness of breath, cough, chest congestion, wheezing, and phlegm production. She is feeling better. She remains on 2 L nasal cannula. She's not receiving any IV fluids. When she is laying perfectly still in bed, she doesn't feel bad. Any activity makes her short of breath. In my opinion, she is not quite ready to be discharged. No new laboratory data is noted. Chest x- ray from August 10 was reviewed. The patient is seen today 08/12/2021 in follow-up in the regular medical floor. She is currently sitting up in bed. Awake and alert in no acute distress. She is breathing easier today. She is feeling back to her baseline. She is anxious to go home. She's currently on 2 L nasal cannula with O2 saturations in the 90s. Blood cultures revealed no growth. Sputum culture revealed no growth. Sodium 136. Potassium 3.2. Bicarb 37. Creatinine 0.52. She is continued on DuoNeb inhalations, Pulmicort and Perforomist inhalations, prednisone. Lovenox for DVT prophylaxis. Objective - Vital Signs Vital signs: Vital Signs Temp 98.4 F 08/12/21 07:56 Pulse 95 08/12/21 11:29 Resp 17 08/12/21 07:59 BP 132/69 08/12/21 07:56 Pulse Ox 92 L 08/12/21 07:56 Intake & Output 08/11/21 08/12/21 08/12/21 18:59 06:59 18:59 Intake Total 480 540 Balance 480 540 Intake: Oral 480 540 Other: Voiding Method Toilet Toilet Toilet # Voids 2 1 # Bowel Movements 1 - Exam GENERAL EXAM: Alert, pleasant 66-year-old female on 2 L nasal cannula, comfortable in no apparent distress. HEAD: Normocephalic. EYES: Normal reaction of pupils, equal size. NOSE: Clear with pink turbinates. THROAT: No erythema or exudates. NECK: No masses, no JVD. CHEST: No chest wall deformity. LUNGS: Equal air entry with no crackles, wheeze, rhonchi or dullness. Diminished. CVS: S1 and S2 normal with no audible murmur, regular rhythm. ABDOMEN: No hepatosplenomegaly, normal bowel sounds, no guarding or rigidity. SPINE: No scoliosis or deformity SKIN: No rashes CENTRAL NERVOUS SYSTEM: No focal deficits, tone is normal in all 4 extremities. EXTREMITIES: There is no peripheral edema. No clubbing, no cyanosis. Peripheral pulses are intact. - Labs CBC & Chem 7: 08/09/21 07:10 08/12/21 07:06 Labs: Abnormal Lab Results - Last 24 Hours (Table) 08/12/21 Range/Units 07:06 Sodium 136 L (137-145) mmol/L Potassium 3.2 L (3.5-5.1) mmol/L Chloride 94 L (98-107) mmol/L Carbon Dioxide 37 H (22-30) mmol/L Microbiology - Last 24 Hours (Table) 08/08/21 08:00 Blood Culture - Preliminary Blood No Growth after 96 hours 08/08/21 07:45 Blood Culture - Preliminary Blood No Growth after 96 hours Assessment and Plan Assessment: 1 COPD exacerbation, complicated by purulent tracheobronchitis/bronchopneumonia, in a patient with heavy tobacco use previously. 2 Prior history of heavy tobacco use for 25-30 years. 3 History of colonic polyps. 4 History of hyperlipidemia. Plan: The patient was seen and evaluated Stable for discharge from the pulmonary standpoint Evaluate for possible home oxygen Could be discharged on Symbicort, albuterol HFA Prednisone taper starting at 40 mg daily for 4 days Follow-up in our office in 1-2 weeks' I, the cosigning physician, performed a history & physical examination of the patient. Lungs sounds are clear, diminished. Maintaining good O2 saturations in the 90s on 2 L/m per nasal cannula. I discussed the assessment and plan of care with my nurse practitioner, Helen Valdivia. I attest to the above note as dictated by her.
[2021-08-12 12:01] VITALS: BP 139/79; PULSE 100
--- NOTE | 2021-08-16 10:10 | P.DS ---
Providers Date of admission: 08/08/21 06:48 Expected date of discharge: 08/12/21 Attending physician: Eduardo Katz Consults: 08/08/21 09:42 Consult Physician Routine Consulting Provider: Bridgette Mendez Consult Reason/Comments: COPD, PNA Do you want consulting provider notified?: Yes Primary care physician: Derrick Galvez Hospital Course: Final diagnosis -Bacterial bronchitis, sinusitis -Acute hypoxic respiratory failure etiology of which is not clear, most likely COPD acute exacerbation -Multiple pulmonary nodules with lymphadenopathy, may need bronchoscopy per primary consultation as mentioned above -Quit smoking about a month ago -Hypovolemic hyponatremia, improved -Depression -Hyperlipidemia -DVT prophylaxis Discharge disposition Patient is being discharged in a stable condition with guarded prognosis to home. Patient will follow-up with Dr. Galvez upon discharge. Patient to continue with inhalers and will continue with a prednisone taper on discharge. Patient is to follow up with pulmonary outpatient in 2 weeks for further testing. Total time taken is greater than 35 minutes. Hospital course This is a 66-year-old female who came in with nasal congestion and cough with sputum production that had been ongoing and getting worse for the last 5 days. Patient was also found to be hypoxic and having extensive wheezing and does have history of COPD. Patient was evaluated by pulmonary and maintained on breathing inhalational treatments along with oral steroids and empiric antibiotics. Sputum and blood cultures were negative and antibiotics were discontinued. Patient will continue on albuterol and Symbicort treatments along with a prednisone taper on discharge and is requiring oxygen at 2 L via nasal cannula secondary to COPD. Patient encouraged to follow-up with pulmonary in the next 1-2 weeks for further testing and referrals given. Currently no reports of chest pain, worsening shortness of breath, or palpitations. Patient is afebrile. No reports of nausea or vomiting and patient is tolerating diet. Patient will be discharged to home today. PHYSICAL EXAMINATION: GENERAL: The patient is alert and oriented x3, not in any acute distress. Well developed, well nourished. HEENT: Pupils are round and equally reacting to light. EOMI. No scleral icterus. No conjunctival pallor. Normocephalic, atraumatic. No pharyngeal erythema. No thyromegaly. CARDIOVASCULAR: S1 and S2 present. No murmurs, rubs, or gallops. PULMONARY: diminished air entry bilaterally with minimal expiratory wheezing noted on exam. Improvement in aeration ABDOMEN: Soft, nontender, nondistended, normoactive bowel sounds. No palpable organomegaly. MUSCULOSKELETAL: No joint swelling or deformity. EXTREMITIES: No cyanosis, clubbing, or pedal edema. NEUROLOGICAL: Gross neurological examination did not reveal any focal deficits. SKIN: No rashes. Please refer to medication reconciliation sheet for a list of medications. Patient Condition at Discharge: Stable Plan - Discharge Summary Discharge Rx Participant: No New Discharge Prescriptions: New Famotidine [Pepcid] 20 mg PO BID 30 Days #60 tab predniSONE 10 mg PO DIRECTED #40 tab Albuterol Inhaler [Ventolin Hfa Inhaler] 1 puff INHALATION RT-QID PRN 30 Days #8 gm PRN Reason: Shortness Of Breath Ipratropium-Albuterol Nebulize [Duoneb 0.5 mg-3 mg/3 ml Soln] 3 ml INHALATION RT-QID 30 Days #90 ml Budesonide-Formot 160-4.5 Mcg [Symbicort 160-4.5 Mcg Inhaler] 2 puff INHALATION BID 30 Days #10.2 gm Continue Citalopram Hydrobromide [CeleXA] 40 mg PO DAILY ALPRAZolam [Xanax] 1 mg PO BID Magnesium 250 mg PO DAILY Vitamin E (Dl,Tocopheryl Acet) [Vitamin E (400 Iu = 180 mg)] 400 unit PO DAILY Zinc 50 mg PO DAILY Cyanocobalamin (Vitamin B-12) [Vitamin B-12] 1,000 mcg PO DAILY Calcium Carbonate [Calcium] 600 mg PO DAILY Atorvastatin [Lipitor] 40 mg PO HS Cholecalciferol [Vitamin D3 (25 Mcg = 1000 Iu)] 50 mcg PO DAILY Albuterol Nebulized [Ventolin Nebulized] 2.5 mg INHALATION RT-QID Ascorbic Acid [Vitamin C] 1,000 mg PO DAILY Discharge Medication List ALPRAZolam [Xanax] 1 mg PO BID 03/08/19 [History] Citalopram Hydrobromide [CeleXA] 40 mg PO DAILY 03/08/19 [History] Magnesium 250 mg PO DAILY 10/05/20 [History] Atorvastatin [Lipitor] 40 mg PO HS 01/05/21 [History] Albuterol Nebulized [Ventolin Nebulized] 2.5 mg INHALATION RT-QID 08/08/21 [History] Ascorbic Acid [Vitamin C] 1,000 mg PO DAILY 08/08/21 [History] Calcium Carbonate [Calcium] 600 mg PO DAILY 08/08/21 [History] Cholecalciferol [Vitamin D3 (25 Mcg = 1000 Iu)] 50 mcg PO DAILY 08/08/21 [History] Cyanocobalamin (Vitamin B-12) [Vitamin B-12] 1,000 mcg PO DAILY 08/08/21 [History] Vitamin E (Dl,Tocopheryl Acet) [Vitamin E (400 Iu = 180 mg)] 400 unit PO DAILY 08/08/21 [History] Zinc 50 mg PO DAILY 08/08/21 [History] Albuterol Inhaler [Ventolin Hfa Inhaler] 1 puff INHALATION RT-QID PRN 30 Days #8 gm 08/12/21 [Rx] Budesonide-Formot 160-4.5 Mcg [Symbicort 160-4.5 Mcg Inhaler] 2 puff INHALATION BID 30 Days #10.2 gm 08/12/21 [Rx] Famotidine [Pepcid] 20 mg PO BID 30 Days #60 tab 08/12/21 [Rx] Ipratropium-Albuterol Nebulize [Duoneb 0.5 mg-3 mg/3 ml Soln] 3 ml INHALATION RT-QID 30 Days #90 ml 08/12/21 [Rx] predniSONE 10 mg PO DIRECTED #40 tab 08/12/21 [Rx] Follow up Appointment(s)/Referral(s): Derrick Galvez MD [Primary Care Provider] - 08/19/21 11:30 am [facility] [NON-STAFF] - 1 Week Don Sharma DO [Doctor of Osteopathic Medicine] - 08/27/21 3:15 pm () Ambulatory/Diagnostic Orders: Complete Blood Count w/diff [LAB.AMB] Time Frame: 3 Days, Location: None Selected Patient Instructions/Handouts: COPD (Chronic Obstructive Pulmonary Disease) (ED) Activity/Diet/Wound Care/Special Instructions: Activity Limited until follow-up Follow-up with primary care provider on discharge Recommend repeat labs in 2-3 days Continue taking medications as prescribed Continue with inhalers and breathing inhalational treatments Follow-up pulmonary in 2 weeks for further testing Continue current diet Continue to avoid tobacco use Continue with 2 L via nasal cannula of oxygen secondary to COPD Discharge Disposition: HOME SELF-CARE
== END 2021-08-12 14:40 | disposition home or self-care (01) | DRG 190 ==
LOC: EC 03:27 → 5NMEDONC 06:48
PROVIDERS: ADMIT Hospitalist; ATTEND Hospitalist
DX: J44.1 Chronic obstructive pulmonary disease with (acute) exacerbation (principal); J96.01 Acute respiratory failure with hypoxia; J18.0 Bronchopneumonia, unspecified organism; E87.1 Hypo-osmolality and hyponatremia; J44.0 Chronic obstructive pulmonary disease with (acute) lower respiratory infection; E78.5 Hyperlipidemia, unspecified; E86.1 Hypovolemia; F32.A Depression, unspecified; R59.1 Generalized enlarged lymph nodes; J32.9 Chronic sinusitis, unspecified; F41.0 Panic disorder [episodic paroxysmal anxiety]; R91.8 Other nonspecific abnormal finding of lung field; Z98.890 Other specified postprocedural states; Z90.710 Acquired absence of both cervix and uterus; Z90.49 Acquired absence of other specified parts of digestive tract; Z87.891 Personal history of nicotine dependence; Z87.19 Personal history of other diseases of the digestive system; Z79.899 Other long term (current) drug therapy; Z86.010 Personal history of colon polyps
CPT/HCPCS: 36415; 71045; 71275; 80048; 80053; 83605; 83880; 84145; 84484; 85025; 85027; 85379; 85610; 85730; 87040; 87070; 87205; 87502; 87635; 93005; 94640; 94760; 99285

== ENCOUNTER → 2021-08-16 | Outpatient (CLI) | payer MEDICARE ==
[2021-08-16 14:44] LABS: HCT 38.2 % (37.2-46.3); HGB 12.1 g/dL (12.0-15.0); MCH 29.2 pg (27.0-32.0); MCHC 31.7 g/dL (32.0-37.0); MCV 92.3 fL (80.0-97.0); Mean Platelet Volume 9.5 fL (9.5-12.2); Platelet Count 312 X 10*3/uL (140-440); RBC 4.14 X 10*6/uL (4.10-5.20); RDW 14.4 % (11.5-14.5); WBC 12.99 X 10*3/uL (4.50-10.00)
[2021-08-16 15:16] LABS: Basophils # (M) 0 X 10*3/uL (0.00-0.10); Eosinophils # (M) 0.39 X 10*3/uL (0.04-0.35); Lymphocytes # (M) 2.08 X 10*3/uL (0.90-5.00); Metamyelocytes % 3 % (0-0); Monocytes # (M) 0.52 X 10*3/uL (0.20-1.00); Myelocytes % 1 % (0-0); Neutrophils # (M) 9.48 X 10*3/uL (2.00-8.90); Neutrophils % (M) 73 %
[2021-08-16 15:44] LABS: African American GFR (CKD) 109.3 (60.0-200.0); Anion Gap 11.4 mmol/L (10.00-18.00); BUN/Creat Ratio 9.67 Ratio (12.00-20.00); Blood Urea Nitrogen 5.8 mg/dL (9.0-27.0); Calcium 8.9 mg/dL (8.7-10.3); Carbon Dioxide 29.6 mmol/L (20.0-27.5); Non-African American GFR(CKD) 94.3 (60.0-200.0); Potassium 3.6 mmol/L (3.5-5.5)
== END | disposition home or self-care (01) ==
LOC: LABWHC1 09:54
PROVIDERS: ATTEND Registered Nurse
DX: E87.6 Hypokalemia (principal); D72.829 Elevated white blood cell count, unspecified
CPT/HCPCS: 36415; 80048; 85025

== ENCOUNTER → 2021-10-08 | Outpatient (CLI) | payer MEDICARE ==
--- NOTE | 2021-10-12 09:55 | MM ---
Reason for exam: screening (asymptomatic). Last mammogram was performed 1 year and 1 month ago. History: Patient is postmenopausal and is nulliparous. Took hormonal contraceptives for 20 years beginning at age 19. Took estrogen for 1 year beginning at age 44. Took progesterone for 1 year beginning at age 44. Physical Findings: A clinical breast exam by your physician is recommended on an annual basis and results should be correlated with mammographic findings. MG 3D Screening Mammo W/Cad Bilateral CC and MLO view(s) were taken. Prior study comparison: September 02, 2020, bilateral MG 3d screening mammo w/cad. July 26, 2019, bilateral MG 3d screening mammo w/cad. There are scattered fibroglandular densities. No significant changes when compared with prior studies. ASSESSMENT: Negative, BI-RAD 1 RECOMMENDATION: Routine screening mammogram of both breasts in 1 year.
== END | disposition home or self-care (01) ==
LOC: RADMAMWWP 16:03
PROVIDERS: ATTEND Family Medicine
DX: Z12.31 Encounter for screening mammogram for malignant neoplasm of breast (principal); Z78.0 Asymptomatic menopausal state
CPT/HCPCS: 77063; 77067

== ENCOUNTER → 2022-01-31 | Outpatient (CLI) | payer MEDICARE ==
[2022-01-31 14:47] LABS: African American GFR (CKD) >90 (>60 ml/min/1.73 sqM); Blood Urea Nitrogen 10 mg/dL (7-17); Non-African American GFR(CKD) >90 (>60 ml/min/1.73 sqM)
--- NOTE | 2022-01-31 15:20 | CT ---
EXAMINATION TYPE: CT chest w con CT DLP: 282.60 mGycm, Automated exposure control for dose reduction was used. DATE OF EXAM: 01/31/2022 3:06 PM COMPARISON: 08/08/[address] chest 02/11/2019. CLINICAL INDICATION:Female, 66 years old with history of R91.8 ABNORMAL FINDING OF LUNG FIELD, abnor mal lung cummins. Hx COPD TECHNIQUE: Multiple axial images were obtained through the chest. Contrast used:70 mL of Isovue 300 with IV Contrast, Oral contrast used: None FINDINGS: LUNGS/ PLEURA: Stable appearance of the left upper lobe cystic changes which may represent centrilobu lar emphysema changes dating back to 2019. There is been a decrease in opacities scattered throughout the lungs with somewhat tree-in-bud pattern with persistent areas again visualized but to a lesser d egree. Examples simple includes the lingula and right middle lobe. No suspicious pulmonary nodules de finitively visualized on today's exam. Scattered nodular densities are seen throughout the lungs whic h are felt to be related to the a forementioned tree-in-bud opacities. No focal consolidation, pneumo thorax or pleural effusion. AIRWAY: Patent and unremarkable.. HEART: Size within normal limits. MEDIASTINUM: No gross evidence of adenopathy. VASCULATURE: No aortic aneurysm. MUSCULOSKELETAL: Mild disc degeneration changes are present throughout the thoracolumbar spine. SOFT TISSUES/LYMPH NODES: Unremarkable. LOWER NECK: No significant findings. UPPER ABDOMEN: No significant findings. IMPRESSION: 1. Interval decrease scattered tree-in-bud opacities with persistent areas still identified on today' s exam findings. Given findings are seen dating back to 2019 is likely represents an acute on chronic infectious/inflammatory process. No suspicious greater than 4 mm pulmonary nodules identified. 2. Mild COPD changes.
== END | disposition home or self-care (01) ==
LOC: RADCTMAIN 14:07
PROVIDERS: ATTEND Internal Medicine Critical Care Medicine
DX: J44.9 Chronic obstructive pulmonary disease, unspecified (principal); R91.8 Other nonspecific abnormal finding of lung field
CPT/HCPCS: 82565; 84520; 71260; 36415; Q9967

== ENCOUNTER → 2022-05-26 | Outpatient (CLI) | payer MEDICARE ==
[2022-05-26 14:21] LABS: ALT 27 U/L (8-44); AST 63 U/L (13-35); Chol/HDL Ratio 2.22 Ratio; LDL Cholesterol,Calculated 64.1 mg/dL (0.0-131.0); VLDL Calculation 12.36 mg/dL (5.00-40.00)
== END | disposition home or self-care (01) ==
LOC: LABWHC1 08:24
PROVIDERS: ATTEND Internal Medicine Interventional Cardiology
DX: E78.2 Mixed hyperlipidemia (principal)
CPT/HCPCS: 36415; 80061; 84450; 84460

== ENCOUNTER → 2022-10-10 | Outpatient (CLI) | payer MEDICARE ==
--- NOTE | 2022-10-11 08:03 | MM ---
Reason for Exam: Screening (asymptomatic). Last screening mammogram was performed 12 month(s) ago. Patient History: Menarche at age 14. Patient has no children. Left ovary removed at age 44. Right ovary removed at age 44. Hysterectomy at age 44. Postmenopausal. Estrogen for 1 year from age 44 until age 45. Progesterone for 1 year from age 44 until age 45. Hormonal Contraceptives for 20 years from age 19 until age 39. Risk Values: Tabatha 5 year model risk: 1.7%. NCI Lifetime model risk: 5.6%. Prior Study Comparison: 07/26/2019 Bilateral Screening Mammogram, [facility]. 09/02/2020 Bilateral Screening Mammogram, [facility]. 10/08/2021 Bilateral Screening Mammogram, [facility]. Tissue Density: There are scattered fibroglandular densities. Findings: Analyzed By CAD. There is no suspicious group of microcalcifications or new suspicious mass in either breast. Overall Assessment: Negative, BI-RAD 1 Management: Screening Mammogram of both breasts in 1 year. A clinical breast exam by your physician is recommended on an annual basis and results should be correlated with mammographic findings. Electronically signed and approved by: Sukhi Glez M.D. Radiologis
== END | disposition home or self-care (01) ==
LOC: RADMAMWWP 15:41
PROVIDERS: ATTEND Family Medicine
DX: Z12.31 Encounter for screening mammogram for malignant neoplasm of breast (principal); Z78.0 Asymptomatic menopausal state
CPT/HCPCS: 77063; 77067

== ENCOUNTER → 2022-11-24 | Outpatient (CLI) | payer MEDICARE ==
[2022-11-24 15:57] LABS: ALT 23 U/L (8-44); AST 33 U/L (13-35); Chol/HDL Ratio 2.23 Ratio; VLDL Calculation 14.68 mg/dL (5.00-40.00)
== END | disposition home or self-care (01) ==
LOC: LABWHC1 08:05
PROVIDERS: ATTEND Nurse Practitioner Adult Health
DX: E78.2 Mixed hyperlipidemia (principal)
CPT/HCPCS: 36415; 80061; 84450; 84460

== ENCOUNTER → 2023-05-15 | Outpatient (CLI) | payer MEDICARE ==
[2023-05-15 15:59] LABS: LDL Cholesterol,Calculated 55.5 mg/dL (0.0-131.0); VLDL Calculation 18.78 mg/dL (5.00-40.00)
[2023-05-15 16:00] LABS: ALT 22 U/L (8-44); AST 27 U/L (13-35); Albumin 4.1 d/dL (3.8-4.9); Albumin/Globulin Ratio 1.95 Ratio (1.60-3.17); Alkaline Phosphatase 83 U/L (41-126); BUN/Creat Ratio 10.29 Ratio (12.00-20.00); Blood Urea Nitrogen 7.2 mg/dL (9.0-27.0); Calcium 9.3 mg/dL (8.7-10.3); Carbon Dioxide 30.2 mmol/L (21.6-31.8); Chloride 106 mmol/L (96-109); Globulin 2.1 d/dL (1.6-3.3); Glucose 91 mg/dL (70-110); Potassium 4.2 mmol/L (3.5-5.5); Sodium 145 mmol/L (135-145); Total Protein 6.2 d/dL (6.2-8.2)
== END | disposition home or self-care (01) ==
LOC: LABWHC1 08:24
PROVIDERS: ATTEND Internal Medicine Interventional Cardiology
DX: E78.2 Mixed hyperlipidemia (principal)
CPT/HCPCS: 36415; 80053; 80061

== ENCOUNTER → 2023-11-21 | Outpatient (CLI) | payer MEDICARE ==
--- NOTE | 2023-11-23 18:59 | MM ---
Reason for Exam: Screening (asymptomatic). Last mammogram was performed 1 year(s) and 2 month(s) ago. Patient History: Menarche at age 14. Patient has no children. Left ovary removed at age 44. Right ovary removed at age 44. Hysterectomy at age 44. Postmenopausal. Estrogen for 1 year from age 44 until age 45. Progesterone for 1 year from age 44 until age 45. Hormonal Contraceptives for 20 years from age 19 until age 39. Risk Values: Tabatha 5 year model risk: 1.7%. NCI Lifetime model risk: 5.4%. Prior Study Comparison: 09/02/2020 Bilateral Screening Mammogram, [facility]. 10/08/2021 Bilateral Screening Mammogram, [facility]. 10/10/2022 Bilateral MG 3D screening mammo w/cad, [facility]. Tissue Density: There are scattered areas of fibroglandular density. Findings: Analyzed By CAD. There is no suspicious group of microcalcifications or new suspicious mass in either breast. Overall Assessment: Negative, BI-RAD 1 Management: Screening Mammogram of both breasts in 1 year. . Patient should continue monthly self-breast exams. A clinical breast exam by your physician is recommended on an annual basis. This exam should not preclude additional follow-up of suspicious palpable abnormalities. Note on Tabatha scores and lifetime risk: 1. A Tabatha score greater than 3% is considered moderate risk. If this is the case, consider specialist referral to assess eligibility for a risk reducing agent. 2. If overall lifetime risk for the development of breast cancer is 20% or higher, the patient may qualify for future screening with alternating mammogram and breast MRI. Electronically signed and approved by: Deborah Cornejo M.D. Radiologist
== END | disposition home or self-care (01) ==
LOC: RADMAMWWP 15:40
PROVIDERS: ATTEND Family Medicine
DX: Z12.31 Encounter for screening mammogram for malignant neoplasm of breast (principal); Z78.0 Asymptomatic menopausal state
CPT/HCPCS: 77063; 77067

== ENCOUNTER 2024-04-24 08:50 | Day surgery (SDC) | payer MEDICARE ==
[2024-04-22 15:26] VITALS: BMI 25.0
--- NOTE | 2024-04-24 08:03 | P.GSHP ---
History of Present Illness H&P Date: 04/24/24 CHIEF COMPLAINT: Colon screen HISTORY OF PRESENT ILLNESS: The patient is a 68-year-old female who presents for colon screen. Lower endoscopy was offered for further evaluation and management. PAST MEDICAL HISTORY: Please see list. PAST SURGICAL HISTORY: Please see list. MEDICATIONS: Please see list. ALLERGIES: Please see list. SOCIAL HISTORY: No illicit drug use FAMILY HISTORY: No reports of Crohn disease or ulcerative colitis. REVIEW OF ORGAN SYSTEMS: CONSTITUTIONAL: No reports of fevers or chills. PHYSICAL EXAM: VITAL SIGNS: Stable GENERAL: Well-developed pleasant in no acute distress. HEENT: No scleral icterus. Extraocular movements grossly intact. Moist buccal mucosa. NECK: Supple without lymphadenopathy. CHEST: Unlabored respirations. Equal bilateral excursions. CARDIOVASCULAR: Regular rate and rhythm. Distal 2+ pulses. ABDOMEN: Soft, nontender, nondistended. MUSCULOSKELETAL: No clubbing, cyanosis, or edema. ASSESSMENT: 1. Colon screen. PLAN: 1. Recommend proceeding with a lower endoscopy Past Medical History Past Medical History: COPD, Hyperlipidemia, Pneumonia Additional Past Medical History / Comment(s): Hx of colon polyps, States hx. of colon being twisted. History of Any Multi-Drug Resistant Organisms: None Reported Past Surgical History: Appendectomy, Hysterectomy, Tonsillectomy Additional Past Surgical History / Comment(s): Colonoscopies, part of colon removed 3 years Past Anesthesia/Blood Transfusion Reactions: No Reported Reaction Additional Past Anesthesia/Blood Transfusion Reaction / Comment(s): PT REPORTS NEVER RECEIVED Smoking Status: Current every day smoker - Past Family History Mother Family Medical History: Deep Vein Thrombosis (DVT) Additional Family Medical History / Comment(s): (PT UNSURE OF MEDICAL HX FROM ANY OTHER FAMILY) Medications and Allergies Home Medications Medication Instructions Recorded Confirmed Type ALPRAZolam [Xanax] 1 mg PO BID 03/08/19 04/22/24 History Citalopram Hydrobromide [CeleXA] 40 mg PO DAILY 03/08/19 04/22/24 History Magnesium 250 mg PO DAILY 10/05/20 04/22/24 History Atorvastatin [Lipitor] 40 mg PO HS 01/05/21 04/22/24 History Albuterol Nebulized [Ventolin 2.5 mg INHALATION RT-QID 08/08/21 04/22/24 History Nebulized] Ascorbic Acid [Vitamin C] 1,000 mg PO DAILY 08/08/21 04/22/24 History Calcium Carbonate [Calcium] 600 mg PO DAILY 08/08/21 04/22/24 History Cholecalciferol [Vitamin D3 (25 50 mcg PO DAILY 08/08/21 04/22/24 History Mcg = 1000 Iu)] Cyanocobalamin (Vitamin B-12) 1,000 mcg PO DAILY 08/08/21 04/22/24 History [Vitamin B-12] Vitamin E (Dl,Tocopheryl Acet) 400 unit PO DAILY 08/08/21 04/22/24 History [Vitamin E (400 Iu = 180 mg)] Zinc 50 mg PO DAILY 08/08/21 04/22/24 History Albuterol Inhaler [Ventolin Hfa 1 puff INHALATION RT-QID PRN 30 08/12/21 04/22/24 Rx Inhaler] Days #8 gm Budesonide-Formot 160-4.5 Mcg 2 puff INHALATION BID 30 Days 08/12/21 04/22/24 Rx [Symbicort 160-4.5 Mcg Inhaler] #10.2 gm Famotidine [Pepcid] 20 mg PO BID 30 Days #60 tab 08/12/21 04/22/24 Rx Ipratropium-Albuterol Nebulize 3 ml INHALATION RT-QID 30 Days #90 08/12/21 04/22/24 Rx [Duoneb 0.5 mg-3 mg/3 ml Soln] ml Allergies Allergy/AdvReac Type Severity Reaction Status Date / Time No Known Allergies Allergy Verified 04/22/24 15:01
[~2024-04-24 08:50] MED LIST changes: -ACETAMINOPHEN TAB 500 MG TAB PO PRN; -ALVIMOPAN 12 MG CAPSULE PO PRN; -Antibiotics per Pharmacy 1 EACH MISC MISCELLANE PRN; -DEXAMETHASONE SOD PHOSPHATE 4 MG/ML 1 ML VIAL IV ONE; -GABAPENTIN 300 MG CAP PO PRN; -HEPARIN SODIUM,PORCINE/PF 5,000 UNIT/0.5 ML SYRINGE SQ PRN; -HYDROmorphone 0.5 MG/0.5 ML SYRINGE IVP PRN; +LIDOCAINE 1% (10MG/ML) FOR IV START INTRADERMA PRN; -MELOXICAM 7.5 MG TAB PO PRN; -MIDAZOLAM 2 MG/2 ML VIAL IV PRN; -ONDANSETRON 4 MG/2 ML VIAL IVP ONE; -metroNIDAZOLE-NS PMX 500 MG in SALINE 1 100ML.BAG IVPB PRN
[2024-04-24 09:26] VITALS: RESP 18; TEMP 97.3
[2024-04-24] MEDS: LACTATED RINGERS 1,000 ML IV SCH (09:29)
[2024-04-24] MEDS: IV FLUID CONTINUATION 1,000 ML IV ONE (09:29)
[2024-04-24] MEDS ORDERED: PROPOFOL 10 MG/ML 20 ML VIAL IV ONE (09:35)
[2024-04-24] MEDS ORDERED: LIDOCAINE 1% INJ 10MG/ML (20 ML MDV) ONE (09:35)
--- NOTE | 2024-04-24 10:14 | P.PCN ---
Date of Procedure: 04/24/24 Description of Procedure: PREOPERATIVE DIAGNOSIS: Colonoscopy screening POSTOPERATIVE DIAGNOSIS: Tubular adenoma hepatic flexure Tubular adenoma transverse colon Tubular adenoma sigmoid colon Tubular adenoma rectum Sigmoid diverticulosis Internal hemorrhoids, grade 2 OPERATION: Colonoscopy to the ileocecal valve and appendiceal orifice, cecum Colonoscopy with hot snare polypectomy SURGEON: Molly Flores MD. ANESTHESIA: MAC. INDICATIONS: The patient is an 68-year-old male who presents for colonoscopy screening. Benefits and risks were described and informed consent was obtained. DESCRIPTION OF PROCEDURE: The patient had undergone Sutab prep. The patient had been brought into the operating room and laid in the left lateral decubitus position. After adequate intravenous sedation, the rectum was examined with 2% lidocaine jelly. External hemorrhoids were encountered. The rectal tone was within normal limits. No lesions were palpated in the rectal vault. An Olympus colonoscope was advanced until the cecum, ileocecal valve and appendiceal orifice were clearly viewed. The prep was good. Sigmoid diverticulosis was encountered. Colonic polyps were found and removed. No evidence of focal colitis was found. Retroflexion of the scope demonstrated grade 2 internal hemorrhoids without active bleeding or inflammation. The colon was desufflated. The patient had tolerated the procedure well. Withdrawal time was over 6 minutes. FINDINGS: Aronchick preparation quality scale 2 (1-5) Internal hemorrhoids, grade 2 External hemorrhoids, grade 2 No arteriovenous malformations. Sigmoid diverticulosis, moderate Removal of 5 polyps: - Snare polypectomy sigmoid colon, 5 mm tubulovillous adenoma - Snare polypectomy rectum, 10 mm tubulovillous adenoma - Snare polypectomy hepatic flexure, 8 mm flat villous adenoma - Snare polypectomy transverse colon, 6 mm flat villous adenoma No focal colitis. RECOMMENDATIONS: Repeat colonoscopy 3 years, 2026 Plan - Discharge Summary Discharge Rx Participant: Yes New Discharge Prescriptions: Continue Citalopram Hydrobromide [CeleXA] 40 mg PO DAILY ALPRAZolam [Xanax] 1 mg PO BID Magnesium 250 mg PO DAILY Vitamin E (Dl,Tocopheryl Acet) [Vitamin E (400 Iu = 180 mg)] 400 unit PO DAILY Zinc 50 mg PO DAILY Cyanocobalamin (Vitamin B-12) [Vitamin B-12] 1,000 mcg PO DAILY Calcium Carbonate [Calcium] 600 mg PO DAILY Albuterol Inhaler [Ventolin Hfa Inhaler] 1 puff INHALATION RT-QID PRN 30 Days #8 gm PRN Reason: Shortness Of Breath Atorvastatin [Lipitor] 40 mg PO HS Cholecalciferol [Vitamin D3 (25 Mcg = 1000 Iu)] 50 mcg PO DAILY Albuterol Nebulized [Ventolin Nebulized] 2.5 mg INHALATION RT-QID Ascorbic Acid [Vitamin C] 1,000 mg PO DAILY Ipratropium-Albuterol Nebulize [Duoneb 0.5 mg-3 mg/3 ml Soln] 3 ml INHALATION RT-QID 30 Days #90 ml Budesonide-Formot 160-4.5 Mcg [Symbicort 160-4.5 Mcg Inhaler] 2 puff INHALATION BID 30 Days #10.2 gm Discharge Medication List ALPRAZolam [Xanax] 1 mg PO BID 03/08/19 [History] Citalopram Hydrobromide [CeleXA] 40 mg PO DAILY 03/08/19 [History] Magnesium 250 mg PO DAILY 10/05/20 [History] Atorvastatin [Lipitor] 40 mg PO HS 01/05/21 [History] Albuterol Nebulized [Ventolin Nebulized] 2.5 mg INHALATION RT-QID 08/08/21 [History] Ascorbic Acid [Vitamin C] 1,000 mg PO DAILY 08/08/21 [History] Calcium Carbonate [Calcium] 600 mg PO DAILY 08/08/21 [History] Cholecalciferol [Vitamin D3 (25 Mcg = 1000 Iu)] 50 mcg PO DAILY 08/08/21 [History] Cyanocobalamin (Vitamin B-12) [Vitamin B-12] 1,000 mcg PO DAILY 08/08/21 [History] Vitamin E (Dl,Tocopheryl Acet) [Vitamin E (400 Iu = 180 mg)] 400 unit PO DAILY 08/08/21 [History] Zinc 50 mg PO DAILY 08/08/21 [History] Albuterol Inhaler [Ventolin Hfa Inhaler] 1 puff INHALATION RT-QID PRN 30 Days #8 gm 08/12/21 [Rx] Budesonide-Formot 160-4.5 Mcg [Symbicort 160-4.5 Mcg Inhaler] 2 puff INHALATION BID 30 Days #10.2 gm 08/12/21 [Rx] Ipratropium-Albuterol Nebulize [Duoneb 0.5 mg-3 mg/3 ml Soln] 3 ml INHALATION RT-QID 30 Days #90 ml 08/12/21 [Rx] Follow up Appointment(s)/Referral(s): Molly Flores MD [STAFF PHYSICIAN] - As Needed Patient Instructions/Handouts: Colorectal Polyps (GEN), Diverticulosis Diet (GEN), Diverticulosis (GEN) Activity/Diet/Wound Care/Special Instructions: Repeat colonoscopy in 3 years, 2026 Discharge Disposition: HOME SELF-CARE
[2024-04-24 10:35] VITALS: BP 110/65; PULSE 77
== END 2024-04-24 11:02 | disposition home or self-care (01) ==
LOC: ORWHC2ENDO 08:50
PROVIDERS: ATTEND Surgery Plastic and Reconstructive Surgery
DX: Z12.11 Encounter for screening for malignant neoplasm of colon
CPT/HCPCS: 45385; 88305

== ENCOUNTER → 2024-05-14 | Outpatient (CLI) | payer MEDICARE ==
[2024-05-14 15:45] LABS: ALT 23 U/L (8-44); AST 32 U/L (13-35); Chol/HDL Ratio 2.26 Ratio; LDL Cholesterol,Calculated 69.1 mg/dL (0.0-131.0); VLDL Calculation 12.44 mg/dL (5.00-40.00)
== END | disposition home or self-care (01) ==
LOC: LABWHC1 08:14
PROVIDERS: ATTEND Internal Medicine Interventional Cardiology
DX: E78.2 Mixed hyperlipidemia (principal)
CPT/HCPCS: 36415; 80061; 84450; 84460

== ENCOUNTER → 2024-11-21 | Outpatient (CLI) | payer MEDICARE ==
--- NOTE | 2024-11-21 13:08 | MM ---
Reason for Exam: Screening (asymptomatic). Last screening mammogram was performed 12 month(s) ago. Patient History: Menarche at age 14. Patient has no children. Left ovary removed at age 44. Right ovary removed at age 44. Hysterectomy at age 44. Postmenopausal. Estrogen for 1 year from age 44 until age 45. Progesterone for 1 year from age 44 until age 45. Hormonal Contraceptives for 20 years from age 19 until age 39. Risk Values: Tabatha 5 year model risk: 1.7%. NCI Lifetime model risk: 5.1%. Prior Study Comparison: 10/08/2021 Bilateral Screening Mammogram, [facility]. 10/10/2022 Bilateral MG 3D screening mammo w/cad, [facility]. 11/21/2023 Bilateral MG 3D screening mammo w/cad, [facility]. Tissue Density: There are scattered areas of fibroglandular density. Findings: Analyzed By CAD. Right breast: There is no suspicious group of microcalcifications or new suspicious mass. Left breast: There is no suspicious group of microcalcifications or new suspicious mass. Overall Assessment: Negative, BI-RAD 1 Management: Screening Mammogram of both breasts in [address] [facility] will attempt to contact patient to return for supplemental views and ultrasound if indicated. Patient should continue monthly self-breast exams. A clinical breast exam by your physician is recommended on an annual basis. This exam should not preclude additional follow-up of suspicious palpable abnormalities. Note on Tabatha scores and lifetime risk: 1. A Tabatha score greater than 3% is considered moderate risk. If this is the case, consider specialist referral to assess eligibility for a risk reducing agent. 2. If overall lifetime risk for the development of breast cancer is 20% or higher, the patient may qualify for future screening with alternating mammogram and breast MRI. [facility], , 11/21/2024 1:05 PM. Electronically signed and approved by: Don Gilbert DO
== END | disposition home or self-care (01) ==
LOC: RADMAMWWP 12:43
PROVIDERS: ATTEND Family Medicine
DX: Z12.31 Encounter for screening mammogram for malignant neoplasm of breast (principal); R92.323 Mammographic fibroglandular density, bilateral breasts; Z78.0 Asymptomatic menopausal state; Z92.0 Personal history of contraception
CPT/HCPCS: 77063; 77067